=== PATIENT | female | born 1930 | race Caucasian/White ===

== ENCOUNTER 2016-08-13 08:53 | Emergency (ER) | payer OTHER ==
[~2016-08-13] VITALS: Ht 157.5 cm; Wt 64.0 kg
[~2016-08-13 08:53] MED LIST: ALPR1 PO; CRANPOW2 PO; DETR2TAB PO; FURO20TA PO; MELA10TA3 PO; OMEP20TA39 PO; SIMV20TA OR; TOPR50TA PO; VENL150T14 OR
[2016-08-13 08:57] VITALS: BP 164/76; PULSE 61; RESP 16; TEMP 98.5; O2SAT 98
[2016-08-13] MEDS ORDERED: VENL75TA PO (09:14)
[2016-08-13] MEDS ORDERED: MELA5TAB15 PO (09:14)
[2016-08-13] MEDS ORDERED: HYDR12.56 PO (09:14)
[2016-08-13] MEDS ORDERED: OXYB5TAB10 PO (09:14)
[2016-08-13] MEDS ORDERED: CHOL50006 PO (09:14)
[2016-08-13] MEDS ORDERED: XANA2TAB2 PO (09:14)
[2016-08-13] MEDS ORDERED: ASCO500C PO (09:14)
[2016-08-13] MEDS ORDERED: STOO100C PO (09:14)
[2016-08-13] MEDS ORDERED: METO25TA6 PO (09:14)
[2016-08-13] MEDS ORDERED: ASPI1TAB69 PO (09:14)
[2016-08-13] MEDS ORDERED: OMEP20TA PO (09:14)
[2016-08-13] MEDS ORDERED: ZOCO20TA PO (09:14)
[2016-08-13] MEDS ORDERED: MECLIZINE HCL 25 MG TAB PO ONE (09:15)
[2016-08-13 09:18] VITALS: BP 178/78; PULSE 71; RESP 18; O2SAT 98
--- NOTE | 2016-08-13 09:19 | PD ---
HPI Chief Complaint: Dizziness Time Seen by Provider: 09:03 Travel History International Travel<30 days: No Contact w/Intl Traveler<30days: No Traveled to known affect area: No History of Present Illness HPI 85-year-old female complains of dizziness. Patient states that she woke up this morning with dizziness and has feeling of the room spinning around her. Patient states that the dizziness got better area patient denies any dizziness now. Patient denies any headache. Patient denies any visual change. Patient denies any neck pain. Patient denies any chest pain or shortness of breath. Patient denies abdominal pain. Patient denies any focal weakness or numbness of extremity. Patient has history of spinal stenosis and normally has weakness on the lower extremity which is not new. Patient stated she drank a glass of wine last night about 3:00 the morning. Patient states that she had an energy drink this morning. Patient has history of vertigo in the past. PFSH Past Medical History Hx Anticoagulant Therapy: Yes (81 MG ASA) Arthritis: Yes Asthma: No Autoimmune Disease: No Blood Disorders: No Anxiety: Yes Depression: Yes Heart Rhythm Problems: No Cancer: No Cardiovascular Problems: Yes (LEAKING VALVE) High Cholesterol: No Chemotherapy: No Chest Pain: Yes Congestive Heart Failure: No COPD: No Cerebrovascular Accident: No Diabetes: No Diminished Hearing: No Endocrine: No Gastrointestinal Disorders: Yes GERD: No Glaucoma: No Genitourinary: No Headaches: No Hepatitis: No Hiatal Hernia: No Hypertension: Yes Neurologic: Yes Psychiatric: Yes (BIPOLAR) Reproductive: No Respiratory: Yes Immunizations Current: Yes Myocardial Infarction: No Radiation Therapy: No Seizures: No Sickle Cell Disease: No Sleep Apnea: No Ulcer: No ?: Not Menopausal: Yes Past Surgical History Abdominal Surgery: No AICD: No Arteriovenous Shunt: No Body Medical Devices: HX OF METAL IMPLANT TO SPINE Cardiac Surgery: No Ear Surgery: No Endocrine Surgery: No Eye Surgery: No Genitourinary Surgery: No Gynecologic Surgery: No Insulin Pump: No Joint Replacement: No Neurologic Surgery: No Oral Surgery: No Pacemaker: No Thoracic Surgery: No Other Surgery: No Social History Alcohol Use: No Tobacco Use: No Substance Use: No Allergies-Medications (Allergen,Severity, Reaction): Coded Allergies: Codeine (Verified Allergy, Severe, UNKNOWN, 08/13/16) Reported Meds & Prescriptions Reported Meds & Active Scripts Active Reported Stool Softener (Docusate Sodium) 100 Mg Cap 100 Mg PO DAILY Vitamin C (Ascorbic Acid) 500 Mg Cap 500 Mg PO DAILY Zocor (Simvastatin) 20 Mg Tab 20 Mg PO HS Effexor (Venlafaxine HCl) 75 Mg Tab 75 Mg PO Q12H Melatonin 5 Mg Tab 5 Mg PO HS Vitamin D (Cholecalciferol) 5,000 Unit Tab 5,000 Units PO DAILY Metoprolol Succinate ER 24 HR (Metoprolol Succinate) 25 Mg Tab 25 Mg PO DAILY Hydrochlorothiazide 12.5 Mg Tab 12.5 Mg PO DAILY Ditropan (Oxybutynin Chloride) 5 Mg Tab 10 Mg PO DAILY Omeprazole 20 Mg Tab 20 Mg PO DAILY Aspirin 81 Mg Tabdr 81 Mg PO DAILY Xanax (Alprazolam) 2 Mg Tab 2 Mg PO HS PRN Review of Systems General / Constitutional: No: Fever Eyes: No: Visual changes HENT: Positive: Lightheadedness, No: Headaches Cardiovascular: No: Chest Pain or Discomfort Respiratory: No: Shortness of Breath Gastrointestinal: No: Abdominal Pain Genitourinary: No: Dysuria Musculoskeletal: No: Pain Skin: No Rash Neurologic: No: Weakness Psychiatric: No: Depression Endocrine: No: Polydipsia Hematologic/Lymphatic: No: Easy Bruising Physical Exam Narrative GENERAL: Well-nourished, well-developed patient. SKIN: Focused skin assessment warm/dry. HEAD: Normocephalic. EYES: No scleral icterus. No injection or drainage. Pupils constricted, reactive. NECK: Supple, trachea midline. No JVD or lymphadenopathy. CARDIOVASCULAR: Regular rate and rhythm without murmurs, gallops, or rubs. RESPIRATORY: Breath sounds equal bilaterally. No accessory muscle use. GASTROINTESTINAL: Abdomen soft, non-tender, nondistended. MUSCULOSKELETAL: No cyanosis, or edema. BACK: Nontender without obvious deformity. No CVA tenderness. Neurologic exam: Patient's awake alert oriented 3. No obvious focal neurological deficit. Data Data Last Documented VS Vital Signs Date Time Temp Pulse Resp B/P Pulse Ox O2 Delivery O2 Flow Rate FiO2 08/13/16 09:18 71 18 178/78 98 Room Air 08/13/16 08:57 98.5 Orders Complete Blood Count With Diff (08/13/16 09:12) Basic Metabolic Panel (Bmp) (08/13/16 09:12) Urinalysis - C+S If Indicated (08/13/16 09:12) Iv Access Insert/Monitor (08/13/16 09:12) Ecg Monitoring (08/13/16 09:12) Oximetry (08/13/16 09:12) Meclizine (Antivert) (08/13/16 09:15) Labs Laboratory Tests Test 08/13/16 08/13/16 09:25 09:35 White Blood Count 6.2 TH/MM3 Red Blood Count 3.93 MIL/MM3 Hemoglobin 13.0 GM/DL Hematocrit 37.9 % Mean Corpuscular Volume 96.6 FL Mean Corpuscular Hemoglobin 33.1 PG Mean Corpuscular Hemoglobin 34.3 % Concent Red Cell Distribution Width 12.7 % Platelet Count 194 TH/MM3 Mean Platelet Volume 8.0 FL Neutrophils (%) (Auto) 76.7 % Lymphocytes (%) (Auto) 14.0 % Monocytes (%) (Auto) 7.8 % Eosinophils (%) (Auto) 0.9 % Basophils (%) (Auto) 0.6 % Neutrophils # (Auto) 4.7 TH/MM3 Lymphocytes # (Auto) 0.9 TH/MM3 Monocytes # (Auto) 0.5 TH/MM3 Eosinophils # (Auto) 0.1 TH/MM3 Basophils # (Auto) 0.0 TH/MM3 CBC Comment AUTO DIFF Differential Comment AUTO DIFF CONFIRMED Sodium Level 141 MEQ/L Potassium Level 4.1 MEQ/L Chloride Level 102 MEQ/L Carbon Dioxide Level 30.0 MEQ/L Anion Gap 9 MEQ/L Blood Urea Nitrogen 15 MG/DL Creatinine 0.90 MG/DL Estimat Glomerular Filtration 59 ML/MIN Rate Random Glucose 101 MG/DL Calcium Level 8.8 MG/DL Urine Collection Type CLEAN CATCH Urine Color STRAW Urine Turbidity SLIGHT Urine pH 6.0 Urine Specific [place] 1.015 Urine Protein NEG mg/dL Urine Glucose (UA) NEG mg/dL Urine Ketones NEG mg/dL Urine Occult Blood SMALL Urine Nitrite NEG Urine Bilirubin NEG Urine Leukocyte Esterase NEG Urine RBC 4-9 /hpf Urine Squamous Epithelial 0-5 /hpf Cells Urine Amorphous Sediment FEW Microscopic Urinalysis Comment CULT NOT INDICATED Urine Collection Time 0935 MDM Medical Decision Making Medical Screen Exam Complete: Yes Emergency Medical Condition: Yes Interpretation(s) 10:08 AM. CBC within normal limit. BMP within normal limit. UA is negative. Differential Diagnosis Differential diagnosis including vertigo, dehydration, electrolyte imbalance, TIA, CVA. Narrative Course 85 years old female with transient dizziness, lightheadedness this morning. Meclizine 25 mg by mouth given. Diagnosis Primary Impression: Acute onset of severe vertigo Patient Instructions: General Instructions Additional Instructions: Meclizine as needed. Follow-up with personal physician. Return if persistent problem or worse. Med/Other Pt SpecificInfo: Prescription(s) given Scripts Meclizine 25 Mg Chew25 Mg CHEW TID #21 TAB Ref 0 Prov:Jose R Winston MD 08/13/16 Disposition: 01 DISCHARGE HOME Condition: Stable Jose R Winston MD Aug 13, 2016 09:19
[2016-08-13 09:34] LABS: AUTOMATED NEUTROPHIL # 4.7 TH/MM3 (1.8-7.7); BASOPHIL % 0.6 % (0.0-2.0); EOSINOPHIL # 0.1 TH/MM3 (0-0.4); EOSINOPHIL % 0.9 % (0.0-4.0); HEMATOCRIT 37.9 % (35.0-46.0); LYMPHOCYTE # 0.9 TH/MM3 (1.0-4.8); MEAN CELL VOLUME 96.6 FL (80.0-100.0); MEAN CORPUSCULAR HEMOGLOBIN 33.1 PG (27.0-34.0); MEAN CORPUSCULAR HGB CONC 34.3 % (32.0-36.0); MONO % 7.8 % (0.0-8.0); NEUT % 76.7 % (16.0-70.0); PLATELET COUNT 194 TH/MM3 (150-450); RED BLOOD COUNT 3.93 MIL/MM3 (4.00-5.30); RED CELL DISTRIBUTION WIDTH 12.7 % (11.6-17.2); WHITE BLOOD COUNT 6.2 TH/MM3 (4.0-11.0)
[2016-08-13 09:38] LABS: HEMO FLAGS AUTO DIFF
[2016-08-13 09:47] LABS: POTASSIUM 4.1 MEQ/L (3.5-5.1)
[2016-08-13 09:55] LABS: SCAN/DIFF AUTO DIFF CONFIRMED
[2016-08-13 10:01] LABS: BLOOD, URINE SMALL (NEG); GLUCOSE,URINE NEG (NEG); KETONE, URINE NEG (NEG); NITRITE,URINE NEG (NEG)
[2016-08-13 10:02] LABS: METHOD OF COLLECTION CLEAN CATCH; URINE COLOR STRAW (YELLW/STRAW)
[2016-08-13 10:06] LABS: COMMENT (UR) CULT NOT INDICATED; CULTURE IF INDICATED CULT NOT INDICATED; SQUAMOUS EPITHELIAL CELL URINE 0-5 /hpf (0-5)
[2016-08-13] MEDS ORDERED: MECL25CH CHEW (10:11)
== END 2016-08-13 10:19 | disposition home or self-care (01) ==
LOC: PHED 08:53
DX: R42 Dizziness and giddiness (principal)
CPT/HCPCS: 80048; 81001; 85025; 99284

== ENCOUNTER 2017-02-27 13:08 | Observation (INO) | payer OTHER ==
[2017-02-27] VITALS (9 sets, daily range): BP systolic 129–153; BP diastolic 65–76; PULSE 63–102; RESP 18; TEMP 97.7–98; O2SAT 97–99
[~2017-02-27] VITALS: Ht 157.5 cm; Wt 61.5 kg
[~2017-02-27 13:08] MED LIST changes: -ALPR1 PO; +ASCO500C PO; +ASPI1TAB69 PO; +CHOL50006 PO; -CRANPOW2 PO; -DETR2TAB PO; -FURO20TA PO; +HYDR12.56 PO; +MECL25CH CHEW; -MELA10TA3 PO; +MELA5TAB15 PO; +METO25TA6 PO; +OMEP20TA PO; -OMEP20TA39 PO; +OXYB5TAB10 PO; -SIMV20TA OR; +STOO100C PO; -TOPR50TA PO; -VENL150T14 OR; +VENL75TA PO; +XANA2TAB2 PO; +ZOCO20TA PO
--- NOTE | 2017-02-27 13:47 | PD ---
Physical Exam Date Seen by Provider: Feb 27, 2017 Time Seen by Provider: 13:40 Narrative 86-year-old female presents the emergency department with ongoing intermittent left sided body pain/flank pain/muscle spasm. Patient has tried multiple medications including baclofen and tizanidine without improvement. Patient recently was treated for bladder spasm which she thinks may be part of it. She denies fever, chills, dysuria, shortness of breath, or nausea or vomiting. Pain is intermittent and spasmodic and 10 over 10 at worst. She is allergic to codeine. Data Data Last Documented VS Vital Signs Date Time Temp Pulse Resp B/P (MAP) Pulse Ox O2 Delivery O2 Flow Rate FiO2 02/27/17 13:11 97.9 63 18 129/76 (93) 98 MDM Medical Record Reviewed: Yes Supervised Visit with WILLA: Yes Narrative Course Vital signs are stable. Cardiac protocols ordered. Patient awaiting bed placement. Condition: Stable Darryl Larson Feb 27, 2017 13:47
[2017-02-27] MEDS ORDERED: SODIUM CHLORIDE 0.9% FLUSH 10 ML FLUSH IVF PRN (14:45)
--- NOTE | 2017-02-27 14:52 | PD ---
HPI Chief Complaint: Musculoskeletal Complaint Time Seen by Provider: 14:35 Travel History International Travel<30 days: No Contact w/Intl Traveler<30days: No Traveled to known affect area: No History of Present Illness HPI 86-year-old female presents with left-sided flank pain that has been present over the past week and a half or so. She states she has been trying to use medications through her primary doctor to help with her bladder spasm and has tried 3 different ones and those are not helping. She states today the pain went up into her chest so she elected to come here K she was worried about her heart. She states that it feels like a spasm. She denies other concurrent complaints at this time. Severity is progressive. She denies specific modifying factors. She states she has tried also Tylenol for the pain without change. Her primary care physician is Dr. Pierson. She notes recently flying from [place] where she visited [facility] Past Medical History Hx Anticoagulant Therapy: Yes (81 MG ASA) Arthritis: Yes Asthma: No Autoimmune Disease: No Blood Disorders: No Anxiety: Yes Depression: Yes Heart Rhythm Problems: No Cancer: No Cardiovascular Problems: Yes High Cholesterol: Yes Chemotherapy: No Chest Pain: Yes Congestive Heart Failure: No COPD: No Cerebrovascular Accident: No Diabetes: No Diminished Hearing: No Endocrine: No Gastrointestinal Disorders: Yes GERD: No Glaucoma: No Genitourinary: No Headaches: No Hepatitis: No Hiatal Hernia: No Hypertension: Yes Neurologic: Yes Psychiatric: Yes (BIPOLAR) Reproductive: No Respiratory: Yes Immunizations Current: Yes Myocardial Infarction: No Radiation Therapy: No Seizures: No Sickle Cell Disease: No Sleep Apnea: No Ulcer: No Menopausal: Yes Past Surgical History Abdominal Surgery: No AICD: No Arteriovenous Shunt: No Body Medical Devices: HX OF METAL IMPLANT TO SPINE Cardiac Surgery: No Ear Surgery: No Endocrine Surgery: No Eye Surgery: No Genitourinary Surgery: No Gynecologic Surgery: No Insulin Pump: No Joint Replacement: No Neurologic Surgery: No Oral Surgery: No Pacemaker: No Thoracic Surgery: No Other Surgery: No Social History Alcohol Use: Yes (wine) Tobacco Use: No Substance Use: No Allergies-Medications (Allergen,Severity, Reaction): Coded Allergies: codeine (Unverified Allergy, Severe, UNKNOWN, 02/27/17) Reported Meds & Prescriptions Reported Meds & Active Scripts Active Reported Aspirin 81 Mg Chew 81 Mg CHEW DAILY Stool Softener (Docusate Sodium) 100 Mg Cap 100 Mg PO DAILY Zocor (Simvastatin) 20 Mg Tab 20 Mg PO HS Effexor (Venlafaxine HCl) 75 Mg Tab 75 Mg PO Q12H Melatonin 5 Mg Tab 5 Mg PO HS Metoprolol Succinate ER 24 HR (Metoprolol Succinate) 25 Mg Tab 25 Mg PO DAILY Hydrochlorothiazide 12.5 Mg Tab 12.5 Mg PO DAILY Ditropan (Oxybutynin Chloride) 5 Mg Tab 10 Mg PO DAILY Omeprazole 20 Mg Tab 20 Mg PO DAILY Xanax (Alprazolam) 2 Mg Tab 2 Mg PO HS PRN Review of Systems Except as stated in HPI: all other systems reviewed are Neg Physical Exam Narrative GENERAL: Well-nourished, well-developed patient. SKIN: Warm and dry. HEAD: Normocephalic and atraumatic. EYES: No injection or drainage. ENT: No nasal drainage noted. NECK: Supple, trachea midline. CARDIOVASCULAR: Regular rate and rhythm RESPIRATORY: No increased effort. No accessory muscle use. GASTROINTESTINAL: Abdomen soft, non-tender, nondistended. EXTREMITIES: No edema. BACK: Nontender without obvious deformity in midline. No CVA tenderness Chest wall: Grabbing left lower chest as area of pain NEUROLOGICAL: Awake and alert. Moves all extremities and sensory grossly within normal limits. Normal speech. Data Data Last Documented VS Vital Signs Date Time Temp Pulse Resp B/P (MAP) Pulse Ox O2 Delivery O2 Flow Rate FiO2 02/27/17 15:29 101 18 153/68 (96) 97 Room Air 02/27/17 13:11 97.9 Orders Orders Electrocardiogram (02/27/17 14:43) Ckmb (Isoenzyme) Profile (02/27/17 14:43) Complete Blood Count With Diff (02/27/17 14:43) Comprehensive Metabolic Panel (02/27/17 14:43) Magnesium (Mg) (02/27/17 14:43) Prothrombin Time / Inr (Pt) (02/27/17 14:43) Act Partial Throm Time (Ptt) (02/27/17 14:43) Troponin I (02/27/17 14:43) Lipase (02/27/17 14:43) Chest, Single Ap (02/27/17 14:43) Ecg Monitoring (02/27/17 14:43) Bilateral Bp Monitoring (02/27/17 14:43) Iv Access Insert/Monitor (02/27/17 14:43) Oximetry (02/27/17 14:43) Sodium Chloride 0.9% Flush (Ns Flush) (02/27/17 14:45) Ct Pulmonary Angiogram (02/27/17 14:43) Ct Abd/Pel W Iv Contrast(Rout) (02/27/17 ) Ketorolac Inj (Toradol Inj) (02/27/17 15:00) Iohexol 350 Inj (Omnipaque 350 Inj) (02/27/17 17:00) Electrocardiogram (02/27/17 16:45) Aspirin (Aspirin) (02/27/17 18:00) Admit Order (Ed Use Only) (02/27/17 17:51) Labs Laboratory Tests Test 02/27/17 15:13 White Blood Count 7.9 TH/MM3 Red Blood Count 3.96 MIL/MM3 Hemoglobin 13.0 GM/DL Hematocrit 38.1 % Mean Corpuscular Volume 96.3 FL Mean Corpuscular Hemoglobin 32.9 PG Mean Corpuscular Hemoglobin Concent 34.2 % Red Cell Distribution Width 13.8 % Platelet Count 231 TH/MM3 Mean Platelet Volume 8.3 FL Neutrophils (%) (Auto) 67.1 % Lymphocytes (%) (Auto) 21.3 % Monocytes (%) (Auto) 10.3 % Eosinophils (%) (Auto) 0.7 % Basophils (%) (Auto) 0.6 % Neutrophils # (Auto) 5.3 TH/MM3 Lymphocytes # (Auto) 1.7 TH/MM3 Monocytes # (Auto) 0.8 TH/MM3 Eosinophils # (Auto) 0.1 TH/MM3 Basophils # (Auto) 0.0 TH/MM3 CBC Comment DIFF FINAL Differential Comment Prothrombin Time 10.2 SEC Prothromb Time International Ratio 0.9 RATIO Activated Partial Thromboplast Time 24.7 SEC Blood Urea Nitrogen 17 MG/DL Creatinine 0.96 MG/DL Random Glucose 93 MG/DL Total Protein 7.1 GM/DL Albumin 3.5 GM/DL Calcium Level 8.5 MG/DL Magnesium Level 2.1 MG/DL Alkaline Phosphatase 88 U/L Aspartate Amino Transf (AST/SGOT) 19 U/L Alanine Aminotransferase (ALT/SGPT) 22 U/L Total Bilirubin 0.3 MG/DL Sodium Level 136 MEQ/L Potassium Level 4.3 MEQ/L Chloride Level 101 MEQ/L Carbon Dioxide Level 28.8 MEQ/L Anion Gap 6 MEQ/L Estimat Glomerular Filtration Rate 55 ML/MIN Total Creatine Kinase 57 U/L Troponin I LESS THAN 0.02 NG/ML Lipase 97 U/L [facility] Medical Decision Making Medical Screen Exam Complete: Yes Emergency Medical Condition: Yes Medical Record Reviewed: Yes (past history confirmed) Interpretation(s) EKG #1 shows significant artifact with pacemaker spikes which limits interpretation but no obvious STEMI criteria EKG #2 after bladder stimulator turned off shows sinus tachycardia at [address] segment elevation or depression or consecutive T-wave inversion CBC & BMP Diagram 02/27/17 15:13 Total Protein 7.1, Albumin 3.5, Calcium Level 8.5, Magnesium Level 2.1, Alkaline Phosphatase 88, Aspartate Amino Transf (AST/SGOT) 19, Alanine Aminotransferase (ALT/SGPT) 22, Total Bilirubin 0.3 Last 24 hours Impressions Chest X-Ray 02/27/17 1443 Signed Impressions: Service Date/Time: Monday, February 27, 2017 15:21 - CONCLUSION: Cardiomegaly. Hiatal hernia. Elevation of the right hemidiaphragm. Duke Oliveira Jr., MD Last 24 hours Impressions Chest X-Ray 02/27/17 1443 Signed Impressions: Service Date/Time: Monday, February 27, 2017 15:21 - CONCLUSION: Cardiomegaly. Hiatal hernia. Elevation of the right hemidiaphragm. Duke Oliveira Jr., MD CT Angiography 02/27/17 1443 Signed Impressions: Service Date/Time: Monday, February 27, 2017 17:00 - CONCLUSION: 1. No acute infiltrate or pulmonary embolus to explain current clinical symptoms. 2. Moderate size hiatal hernia with both a sliding and paraesophageal component. 3. Dense calcification of the mitral valve annulus. Wilberto Saldivar MD Abdomen/Pelvis CT 02/27/17 0000 Signed Impressions: Service Date/Time: Monday, February 27, 2017 17:00 - CONCLUSION: 1. Sigmoid diverticulosis without radiographic evidence of diverticulitis. 2. Significant left lumbar scoliosis with associated degenerative changes. 3. Large paraesophageal hernia, larger than in 2015. Duke Maravilla MD Differential Diagnosis PE, cardiac, musculoskeletal, gastritis, kidney stone, pancreatitis Narrative Course Will check blood work, chest x-ray, CT chest and abdomen and reevaluate [employer] rep states she will come by to turn off her bladder stimulator to see if this is what is contributing to her symptoms After bladder stimulator was turned off EKG was repeated and patient notes that her symptoms for the muscle spasms have resolved. Awaiting CT ct with hiatal hernia which is noted the patient is having more left-sided spasmodic pain and is worried about her heart. She has not had a stress test in 20 years. Agrees to chest pain center observation. Aspirin given Diagnosis Primary Impression: Chest pain Qualified Codes: R07.9 - Chest pain, unspecified Admitting Information Admitting Physician Requests: Observation Irene Tucker MD Feb 27, 2017 14:51
[2017-02-27] MEDS ORDERED: KETOROLAC TROMETHAMINE 30 MG/ML (IVP) VIAL IV PUSH ONE (15:00)
[2017-02-27] MEDS ORDERED: ASPI81CH CHEW (15:25)
[2017-02-27 15:38] LABS: AUTOMATED NEUTROPHIL # 5.3 TH/MM3 (1.8-7.7); BASOPHIL % 0.6 % (0.0-2.0); EOSINOPHIL # 0.1 TH/MM3 (0-0.4); EOSINOPHIL % 0.7 % (0.0-4.0); HEMATOCRIT 38.1 % (35.0-46.0); LYMPH % 21.3 % (9.0-44.0); LYMPHOCYTE # 1.7 TH/MM3 (1.0-4.8); MEAN CELL VOLUME 96.3 FL (80.0-100.0); MEAN CORPUSCULAR HEMOGLOBIN 32.9 PG (27.0-34.0); MEAN CORPUSCULAR HGB CONC 34.2 % (32.0-36.0); MEAN PLATELET VOLUME 8.3 FL (7.0-11.0); MONO % 10.3 % (0.0-8.0); MONOCYTE # 0.8 TH/MM3 (0-0.9); NEUT % 67.1 % (16.0-70.0); PLATELET COUNT 231 TH/MM3 (150-450); RED BLOOD COUNT 3.96 MIL/MM3 (4.00-5.30); RED CELL DISTRIBUTION WIDTH 13.8 % (11.6-17.2); WHITE BLOOD COUNT 7.9 TH/MM3 (4.0-11.0)
[2017-02-27 15:45] LABS: INTERNATIONAL NORMALIZED RATIO 0.9 RATIO; PROTHROMBIN TIME - PATIENT 10.2 SEC (9.8-11.6)
--- NOTE | 2017-02-27 15:58 | RADRPT ---
EXAM DATE/TIME: 02/27/2017 15:21 [facility] COMPARISON: No previous studies available for comparison. INDICATIONS : Chest and back spasms MEDICAL HISTORY : None. SURGICAL HISTORY : None. ENCOUNTER: Initial ACUITY: 1 day PAIN SCORE: Non-responsive. LOCATION: Bilateral chest FINDINGS: A single portable frontal view the chest shows elevation of the right hemidiaphragm. Small hiatal her herb. Moderate cardiomegaly. No pulmonary vascular engorgement. Lungs are clear. No effusions. The deg enerative and scoliotic spine. CONCLUSION: Cardiomegaly. Hiatal hernia. Elevation of the right hemidiaphragm. Duke Oliveira Jr., MD on February 27, 2017 at 15:56 Board Certified Radiologist. This report was verified electronically.
[2017-02-27 16:15] LABS: ALBUMIN 3.5 GM/DL (3.4-5.0); AST (GOT) 19 U/L (15-37); BICARBONATE 28.8 MEQ/L (21.0-32.0); BLOOD UREA NITROGEN 17 MG/DL (7-18); CALCIUM 8.5 MG/DL (8.5-10.1); CHLORIDE 101 MEQ/L (98-107); GLUCOSE,RANDOM 93 MG/DL (74-106); LIPASE 97 U/L (73-393); MAGNESIUM 2.1 MG/DL (1.5-2.5); SODIUM (NA) 136 MEQ/L (136-145)
[2017-02-27 16:22] LABS: ALKALINE PHOSPHATASE 88 U/L (45-117); ALT (GPT) 22 U/L (10-53); CREATININE 0.96 MG/DL (0.50-1.00); GLOMERULAR FILTRATION RATE 55 ML/MIN (>89); TOTAL BILIRUBIN ADULT 0.3 MG/DL (0.2-1.0); TOTAL PROTEIN 7.1 GM/DL (6.4-8.2); TROPONIN I LESS THAN 0.02 NG/ML (0.02-0.05)
[2017-02-27] MEDS ORDERED: IOHEXOL 350 MG/ML 10 ML VIAL (for RAD DIAG) IVCONTRAST ONE (17:00)
--- NOTE | 2017-02-27 17:26 | RADRPT ---
EXAM DATE/TIME: 02/27/2017 17:00 [facility] COMPARISON: No previous studies available for comparison. INDICATIONS : Short of breath. IV CONTRAST: 100 cc Omnipaque 350 (iohexol) IV ; Cumulative dose for multiple exams. RADIATION DOSE: 23.25 CTDIvol (mGy) MEDICAL HISTORY : Cardiovascular disease. Hypertension. SURGICAL HISTORY : None. ENCOUNTER: Initial ACUITY: 1 day PAIN SCALE: 0/10 LOCATION: chest TECHNIQUE: Volumetric scanning of the chest was performed using a pulmonary embolism protocol MIP images were re constructed. Using automated exposure control and adjustment of the mA and/or kV according to patien t size, radiation dose was kept as low as reasonably achievable to obtain optimal diagnostic quality images. DICOM format image data is available electronically for review and comparison. Follow-up recommendations for detected pulmonary nodules are based at a minimum on nodule size and pa tient risk factors according to Fleischner Society Guidelines. FINDINGS: PULMONARY ARTERIES: No filling defects are seen in the pulmonary arteries through the segmental level. LUNGS: There is no consolidation or pneumothorax . No concerning pulmonary nodule is visualized. Benign par enchymal cyst in the anterior aspect of the left lower lobe. PLEURAE: Minimal pleural-parenchymal scarring posteriorly in the left lower hemithorax. MEDIASTINUM: There is good visualization of the great vessels of the middle mediastinum. No evidence of mediastin al or hilar adenopathy/mass. Moderate size hiatal hernia with both a sliding and paraesophageal compo nent. 1 cm hypodense nodule in the left lobe of the thyroid. Dense calcification of the mitral valve anulus MUSCULOSKELETAL: Within normal limits for patient age. MISCELLANEOUS: The visualized upper abdominal organs demonstrate no acute abnormality. Mild distention of the gallbl adder lumen. CONCLUSION: 1. No acute infiltrate or pulmonary embolus to explain current clinical symptoms. 2. Moderate size hiatal hernia with both a sliding and paraesophageal component. 3. Dense calcification of the mitral valve annulus. Wilberto Saldivar MD on February 27, 2017 at 17:19 Board Certified Radiologist. This report was verified electronically.
--- NOTE | 2017-02-27 17:31 | RADRPT ---
EXAM DATE/TIME: 02/27/2017 17:00 [facility] COMPARISON: CT ABDOMEN & PELVIS W/O CONTRAST, June 25, 2014, 10:00. INDICATIONS : Abdominal pain. IV CONTRAST: 100 cc Omnipaque 350 (iohexol) IV ; Cumulative dose for multiple exams. ORAL CONTRAST: No oral contrast ingested. RADIATION DOSE: 8.90 CTDIvol (mGy) MEDICAL HISTORY : Cardiovascular disease. Hypertension. SURGICAL HISTORY : None. ENCOUNTER: Initial ACUITY: 1 day PAIN SCALE: 4/10 LOCATION: Bilateral abdomen TECHNIQUE: Volumetric scanning of the abdomen and pelvis was performed. Using automated exposure control and ad justment of the mA and/or kV according to patient size, radiation dose was kept as low as reasonably achievable to obtain optimal diagnostic quality images. DICOM format image data is available electro nically for review and comparison. FINDINGS: LOWER LUNGS: The visualized lower lungs are clear. Moderate size hiatus hernia measuring 7.7 cm with configuratio n suggesting associated paraesophageal hernia. LIVER: Homogeneous density without lesion. There is no dilation of the biliary tree. No calcified gallston es. SPLEEN: Normal size without lesion. PANCREAS: Within normal limits. KIDNEYS: No evidence of hydronephrosis on this side. There is a lobular configuration to the cortex of both k idneys suggesting possible persistent lobation. There multiple cortical and parenchymal cysts in the left kidney measuring up to 12 mm. ADRENAL GLANDS: Within normal limits. VASCULAR: Prominent wall calcification in the aorta. There is no aortic aneurysm. BOWEL/MESENTERY: No dilated loops of small or large bowel. The appendix is identified in the right lower quadrant and the lumen contains gas. There are numerous air-containing diverticula in the sigmoid colon without radiographic evidence of diverticulitis. No evidence of free fluid. ABDOMINAL WALL: Within normal limits. RETROPERITONEUM: There is no lymphadenopathy. BLADDER: No wall thickening or mass. REPRODUCTIVE: Within normal limits. INGUINAL: There is no lymphadenopathy or hernia. MUSCULOSKELETAL: Significant left lumbar scoliosis with associated endplate sclerosis and lower lumbar hypertrophic de generative changes. CONCLUSION: 1. Sigmoid diverticulosis without radiographic evidence of diverticulitis. 2. Significant left lumbar scoliosis with associated degenerative changes. 3. Large paraesophageal hernia, larger than in 2015. Duke Maravilla MD on February 27, 2017 at 17:24 Board Certified Radiologist. This report was verified electronically.
[2017-02-27] MEDS ORDERED: ASPIRIN 325 MG TAB PO ONE (18:00)
[2017-02-27] MEDS ORDERED: SODIUM CHLORIDE 0.9% FLUSH 10 ML FLUSH IV FLUSH PRN (18:15)
[2017-02-27] MEDS: SODIUM CHLORIDE 0.9% FLUSH 10 ML FLUSH IV FLUSH SCH (21:00)
[2017-02-27 21:33] LABS: TROPONIN I LESS THAN 0.02 NG/ML (0.02-0.05)
[2017-02-28 00:37] LABS: TROPONIN I LESS THAN 0.02 NG/ML (0.02-0.05)
[2017-02-28 03:17] VITALS: BP 175/77; PULSE 86; RESP 17; TEMP 98.5; O2SAT 96
[2017-02-28 03:46] VITALS: PULSE 93
--- NOTE | 2017-02-28 06:38 | EKG ---
Date Performed: 02/27/2017 Time Performed: 15:30:50 PTAGE: 86 years EKG: Probable normal Sinus rhythm artifact-no further interpretation ABNORMAL ECG PREVIOUS TRACING : 02/25/2012 16.44 DOCTOR: Chantal Jacobsen Interpretating Date/Time 02/28/2017 06:37:52
--- NOTE | 2017-02-28 06:41 | EKG ---
Date Performed: 02/27/2017 Time Performed: 21:20:55 PTAGE: 86 years EKG: Sinus rhythm POSSIBLE LEFT ATRIAL ENLARGEMENT POSSIBLE ANTERIOR MYOCARDIAL INFARCTION INFERIOR MYOCARDIAL INFARCT ION ABNORMAL ECG DOCTOR: Chantal Jacobsen Interpretating Date/Time 02/28/2017 06:40:34
[2017-02-28 07:31] VITALS: O2SAT 98
[2017-02-28 07:38] VITALS: BP 182/79; PULSE 93; RESP 20; TEMP 97.6; O2SAT 100
[2017-02-28 08:53] VITALS: PULSE 100
[2017-02-28] MEDS: SODIUM CHLORIDE 0.9% FLUSH 10 ML FLUSH IV FLUSH SCH (09:02)
--- NOTE | 2017-02-28 09:18 | HHI.HP ---
[facility] Primary Care Physician Dr. Pierson Chief Complaint Left sided back pain History of Present Illness 86-year-old female with history of hyperlipidemia, bipolar disorder, and anxiety presents to emergency room for further evaluation of left sided back pain. Onset 2 weeks ago progressively worsening. Location left mid and lower back. Characterized as sharp and cramping pain. No radiation of pain, however endorses intermittent chest tightness. Duration of chest tightness minutes. No associated symptoms of nausea, vomiting, dyspnea, or diaphoresis. No known precipitating or relieving factors. Denies similar pain in the past. Review of Systems General: No fatigue,weakness, fever, chills, or recent illness change. Other than as stated above has been her general state of health. HEENT: No [place] CV: Intermittent chest tightness accompanied with back pain. No current chest tightness or pressure. RESP: No SOB, cough, or sputum production. GI: No nausea, vomiting, or bowel changes. : No dysuria EXT: No lower leg edema, no paraesthesias MS: As stated above. Back pain made worse with movement, unable to get comfortable in any position. No change in ROM, injury, or trauma. NEURO: No difficulty with balance, LOC, or motor/sensory deficits PSYCH: History of anxiety, depression, and bipolar disorder. 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 SKIN: No rashes, no concerning lesions Past Family Social History Allergies: Coded Allergies: codeine (Unverified Allergy, Severe, UNKNOWN, 02/27/17) Past Medical History Anxiety, depression, hyperlipidemia, arthritis, bipolar, GERD, hypertension Past Surgical History Lumbar surgery with implanted metal Reported Medications Reported Meds & Active Scripts Active Reported Aspirin 81 Mg Chew 81 Mg CHEW DAILY Stool Softener (Docusate Sodium) 100 Mg Cap 100 Mg PO DAILY Zocor (Simvastatin) 20 Mg Tab 20 Mg PO HS Effexor (Venlafaxine HCl) 75 Mg Tab 75 Mg PO Q12H Melatonin 5 Mg Tab 5 Mg PO HS Metoprolol Succinate ER 24 HR (Metoprolol Succinate) 25 Mg Tab 25 Mg PO DAILY Hydrochlorothiazide 12.5 Mg Tab 12.5 Mg PO DAILY Ditropan (Oxybutynin Chloride) 5 Mg Tab 10 Mg PO DAILY Omeprazole 20 Mg Tab 20 Mg PO DAILY Xanax (Alprazolam) 2 Mg Tab 2 Mg PO HS PRN Active Ordered Medications Current Medications Medications (Trade) Dose Ordered Sig/Nancy Route Start Time Stop Time Status Last Admin (NS Flush) 2 ml UNSCH PRN IVF 02/27/17 14:45 (NS Flush) 2 ml UNSCH PRN IV FLUSH 02/27/17 18:15 (NS Flush) 2 ml BID IV FLUSH 02/27/17 21:00 02/28/17 09:02 Family History Noncontributory for early onset cardiovascular disease. Social History Known hyperlipidemia and hypertension. No known coronary artery disease or diabetes. Lifelong nonsmoker. Denies any alcohol or illegal drug use. Endorses an active lifestyle. Past cardiac testing None Physical Exam Vital Signs Vital Signs Date Time Temp Pulse Resp B/P (MAP) Pulse Ox O2 Delivery O2 Flow Rate FiO2 02/28/17 08:53 100 02/28/17 07:38 97.6 93 20 182/79 (113) 100 02/28/17 03:46 93 02/28/17 03:17 98.5 86 17 175/77 (109) 96 02/27/17 23:54 97.7 86 18 145/73 (97) 97 02/27/17 20:03 97.9 96 18 148/65 (92) 97 02/27/17 20:00 98 02/27/17 18:09 97 02/27/17 15:29 101 18 153/68 (96) 97 Room Air 02/27/17 15:20 101 18 02/27/17 15:20 102 153/68 (96) 147/72 (97) 02/27/17 15:18 18 99 Room Air 02/27/17 13:11 97.9 63 18 129/76 (93) 98 Physical Exam GENERAL: Alert WN, WD, anxious, elderly female who appears in moderate physical distress HEAD: NC, AT EYES: Sclera clear, conjunctiva without injection, pupils equal and round ENT: Mucous membranes pink and moist NECK: Supple, no masses, trachea midline CV: RRR, without murmur, rub, gallop, no JVD, S1-S2 no S3-S4. RESP: Clear lungs throughout bilateral, no crackles, wheeze, rhonchi, symmetrical chest rise, nonlabored, able to speak in full sentences ABD: Soft, NT, ND, no masses, positive bowel tones BACK: Symmetrical, scoliosis noted, no CVA tenderness EXT: Pulses +24, no dependent edema MS: Normal tone 4 extremities, nontender with palpation, no obvious deformities , full range of motion NEURO: CN II through CN XII grossly intact, motor strength 5/5 PSYCH: A+O 3, pleasant affect, appropriate speech, appropriate mood and affect , insight and judgment SKIN: Normal turgor, normal texture, no lesions, no rashes Laboratory Laboratory Tests Test 02/27/17 15:13 02/27/17 20:15 02/27/17 23:35 White Blood Count 7.9 Red Blood Count 3.96 Hemoglobin 13.0 Hematocrit 38.1 Mean Corpuscular Volume 96.3 Mean Corpuscular Hemoglobin 32.9 Mean Corpuscular Hemoglobin Concent 34.2 Red Cell Distribution Width 13.8 Platelet Count 231 Mean Platelet Volume 8.3 Neutrophils (%) (Auto) 67.1 Lymphocytes (%) (Auto) 21.3 Monocytes (%) (Auto) 10.3 Eosinophils (%) (Auto) 0.7 Basophils (%) (Auto) 0.6 Neutrophils # (Auto) 5.3 Lymphocytes # (Auto) 1.7 Monocytes # (Auto) 0.8 Eosinophils # (Auto) 0.1 Basophils # (Auto) 0.0 CBC Comment DIFF FINAL Differential Comment Prothrombin Time 10.2 Prothromb Time International Ratio 0.9 Activated Partial Thromboplast Time 24.7 Blood Urea Nitrogen 17 Creatinine 0.96 Random Glucose 93 Total Protein 7.1 Albumin 3.5 Calcium Level 8.5 Magnesium Level 2.1 Alkaline Phosphatase 88 Aspartate Amino Transf (AST/SGOT) 19 Alanine Aminotransferase (ALT/SGPT) 22 Total Bilirubin 0.3 Sodium Level 136 Potassium Level 4.3 Chloride Level 101 Carbon Dioxide Level 28.8 Anion Gap 6 Estimat Glomerular Filtration Rate 55 Total Creatine Kinase 57 54 50 Troponin I LESS THAN 0.02 LESS THAN 0.02 LESS THAN 0.02 Lipase 97 Result Diagram: 02/27/17 1513 02/27/17 1513 Imaging Last Impressions Myocardial Perfusion Scan Nuc Med 02/28/17 0000 Signed Impressions: Service Date/Time: Tuesday, February 28, 2017 11:13 - CONCLUSION: No reversible defects observed to suggest acute ischemia. RISK CATEGORY: Low Duke Oliveira Jr., MD Chest X-Ray 02/27/17 1443 Signed Impressions: Service Date/Time: Monday, February 27, 2017 15:21 - CONCLUSION: Cardiomegaly. Hiatal hernia. Elevation of the right hemidiaphragm. Duke Oliveira Jr., MD CT Angiography 02/27/17 1443 Signed Impressions: Service Date/Time: Monday, February 27, 2017 17:00 - CONCLUSION: 1. No acute infiltrate or pulmonary embolus to explain current clinical symptoms. 2. Moderate size hiatal hernia with both a sliding and paraesophageal component. 3. Dense calcification of the mitral valve annulus. Wilberto Saldivar MD Abdomen/Pelvis CT 02/27/17 0000 Signed Impressions: Service Date/Time: Monday, February 27, 2017 17:00 - CONCLUSION: 1. Sigmoid diverticulosis without radiographic evidence of diverticulitis. 2. Significant left lumbar scoliosis with associated degenerative changes. 3. Large paraesophageal hernia, larger than in 2015. Duke Maravilla MD Course EKG Normal sinus tachycardia, no ST or T-segment changes Caprini VTE Risk Assessment Caprini VTE Risk Assessment: Mod/High Risk (score >= 2) Caprini Risk Assessment Model Point Value = 1 Point Value = 2 Point Value = 3 Point Value = 5 Age 41-60 Minor surgery BMI > 25 kg/m2 Swollen legs Varicose veins or History of unexplained or recurrent spontaneous Oral contraceptives or hormone replacement Sepsis (< 1 month) Serious lung disease, including pneumonia (< 1 month) Abnormal pulmonary function Acute myocardial infarction Congestive heart failure (< 1 month) History of inflammatory bowel disease Medical patient at bed rest Age 61-74 Arthroscopic surgery Major open surgery (> 45 min) Laparoscopic surgery (> 45 min) Malignancy Confined to bed (> 72 hours) Immobilizing plaster cast Central venous access Age >= 75 History of VTE Family history of VTE Factor V Leiden Prothrombin [id number] Lupus anticoagulant Anticardiolipin antibodies Elevated serum homocysteine Heparin-induced thrombocytopenia Other congenital or acquired thrombophilia Stroke (< 1 month) Elective arthroplasty Hip, pelvis, or leg fracture Acute spinal cord injury (< 1 month) Prophylaxis Regimen Total Risk Factor Score Risk Level Prophylaxis Regimen 0-1 Low Early ambulation 2 Moderate Order ONE of the following: *Sequential Compression Device (SCD) *Heparin 5000 units SQ BID 3-4 Higher Order ONE of the following medications: *Heparin 5000 units SQ TID *Enoxaparin/Lovenox 40 mg SQ daily (WT < 150 kg, CrCl > 30 mL/min) *Enoxaparin/Lovenox 30 mg SQ daily (WT < 150 kg, CrCl > 10-29 mL/min) *Enoxaparin/Lovenox 30 mg SQ BID (WT < 150 kg, CrCl > 30 mL/min) AND/OR *Sequential Compression Device (SCD) 5 or more Highest Order ONE of the following medications: *Heparin 5000 units SQ TID (Preferred with Epidurals) *Enoxaparin/Lovenox 40 mg SQ daily (WT < 150 kg, CrCl > 30 mL/min) *Enoxaparin/Lovenox 30 mg SQ daily (WT < 150 kg, CrCl > 10-29 mL/min) *Enoxaparin/Lovenox 30 mg SQ BID (WT < 150 kg, CrCl > 30 mL/min) AND *Sequential Compression Device (SCD) Assessment and Plan Assessment and Plan #1 Atypical chest pain-admitted to chest pain center. Ruled out with 3 sets of EKGs, cardiac enzymes, and monitored overnight. Seen and evaluated by Dr. Rommel Tan. Chest tightness atypical, pain medication provided prior to planned chemical stress test. If chemical stress test unremarkable, plan to discharge later this afternoon. Patient agreeable to plan of care. #2 Lumbar radiculopathy-Soma 350 mg by mouth 1, left lumbar scoliosis with degenerative changes found on abd/pelvis CT Scan #3 Anxiety-continue Xanax #4 Hyperlipidemia-continue simvastatin #5 Hypertension-continue metoprolol, hydrochlorothiazide #6 Depression-continue Effexor #7 GERD-continue omeprazole 1445-Chemical stress test unremarkable with no signs of stress-induced ischemia. Continue with plan to discharge home later this afternoon. Patient agreeable to plan of care, stating back pain nearly resolved with Soma. Wishes to go home and will follow up with her PCP. Toya Mclain Feb 28, 2017 09:18
[2017-02-28] MEDS ORDERED: CARISOPRODOL 350 MG TAB PO ONE (10:30)
[2017-02-28] MEDS ORDERED: REGADENOSON INJ 0.4 MG/5 ML SYR ONE (11:57)
[2017-02-28] MEDS ORDERED: NITROGLYCERIN 0.4 MG SL 25 TABS/BTL SL PRN (13:30)
[2017-02-28] MEDS ORDERED: ONDANSETRON HCL 4 MG/2 ML VIAL IV PUSH PRN (13:30)
[2017-02-28] MEDS ORDERED: ACETAMINOPHEN 500 MG CPLT PO PRN (13:30)
--- NOTE | 2017-02-28 13:37 | RADRPT ---
EXAM DATE/TIME: 02/28/2017 11:13 [facility] COMPARISON: No previous studies available for comparison. INDICATIONS : Left sided chest pain. Angina. DOSE: 25.4 mCi Tc99m Myoview at stress. 8.5 mCi Tc99m Myoview at rest. 0.4 mg Lexiscan STRESS SYMPTOMS: Dyspnea. EJECTION FRACTION: > 70% MEDICAL HISTORY : Hypertension. SURGICAL HISTORY : Back surgery. ENCOUNTER: Initial ACUITY: 1 day PAIN SCALE: 4/10 LOCATION: Left chest TECHNIQUE: The patient underwent pharmacologic stress with infusion of prescribed dose. Continuous ECG tracing was monitored during stress. Gated SPECT imaging was performed after stress and conventional SPECT i maging was performed at rest. The examination was performed on a SPECT/CT scanner, both attenuation and non-corrected datasets were reviewed. FINDINGS: DISTRIBUTION: The maximum perfused segment at stress is in the inferior wall. PERFUSION STUDY: The pattern of perfusion at stress is within normal limits. GATED STUDY: There is intact wall motion and thickening without hypokinetic or dyskinetic segments. CONCLUSION: No reversible defects observed to suggest acute ischemia. RISK CATEGORY: Low Duke Oliveira Jr., MD on February 28, 2017 at 13:33 Board Certified Radiologist. This report was verified electronically.
[2017-02-28 14:11] VITALS: BP 212/92; PULSE 102; RESP 20; TEMP 98.1; O2SAT 97
[2017-02-28] MEDS ORDERED: VENLAFAXINE HCL 75 MG TAB PO SCH (14:30)
[2017-02-28] MEDS ORDERED: HYDROCHLOROTHIAZIDE 12.5 MG CAP PO SCH (14:30)
[2017-02-28] MEDS ORDERED: OXYBUTYNIN CHLORIDE 5 MG TAB PO SCH (14:30)
[2017-02-28] MEDS ORDERED: METOPROLOL SUCCINATE 25 MG EXTENDED RELEASE TAB PO SCH (14:30)
[2017-02-28] MEDS ORDERED: PANTOPRAZOLE SOD 20 MG DELAYED RELEASE TAB PO SCH (14:30)
[2017-02-28] MEDS ORDERED: SOMA250T PO (14:51)
--- NOTE | 2017-02-28 14:51 | HHI.DCPOC ---
Discharge Care Plan Diagnosis: (1) Atypical chest pain (2) Cramps, muscle, general Goals to Promote Your Health * To prevent worsening of your condition and complications * To maintain your health at the optimal level Directions to Meet Your Goals Take your medications as prescribed Follow your dietary instruction Follow activity as directed Keep your appointments as scheduled Take your immunizations and boosters as scheduled If your symptoms worsen call your PCP, if no PCP go to Urgent Care Center or Emergency Room Smoking is Dangerous to Your Health. Avoid second hand smoke Call the 24-hour hour crisis hotline for domestic abuse at Toya Mclain Feb 28, 2017 14:51
--- NOTE | 2017-02-28 14:51 | HHI.DCPOC ---
Discharge Care Plan Diagnosis: (1) Atypical chest pain (2) Cramps, muscle, general Goals to Promote Your Health * To prevent worsening of your condition and complications * To maintain your health at the optimal level Directions to Meet Your Goals Take your medications as prescribed Follow your dietary instruction Follow activity as directed Keep your appointments as scheduled Take your immunizations and boosters as scheduled If your symptoms worsen call your PCP, if no PCP go to Urgent Care Center or Emergency Room Smoking is Dangerous to Your Health. Avoid second hand smoke Call the 24-hour hour crisis hotline for domestic abuse at Toya Mclain Feb 28, 2017 14:51
--- NOTE | 2017-02-28 14:51 | HHI.DCPOC ---
Discharge Care Plan Diagnosis: (1) Atypical chest pain (2) Cramps, muscle, general Goals to Promote Your Health * To prevent worsening of your condition and complications * To maintain your health at the optimal level Directions to Meet Your Goals Take your medications as prescribed Follow your dietary instruction Follow activity as directed Keep your appointments as scheduled Take your immunizations and boosters as scheduled If your symptoms worsen call your PCP, if no PCP go to Urgent Care Center or Emergency Room Smoking is Dangerous to Your Health. Avoid second hand smoke Call the 24-hour hour crisis hotline for domestic abuse at Toya Mclain Feb 28, 2017 14:51
--- NOTE | 2017-02-28 16:13 | EKG ---
Date Performed: 02/27/2017 Time Performed: 23:54:21 PTAGE: 86 years EKG: Sinus rhythm POSSIBLE LEFT ATRIAL ENLARGEMENT ABNORMAL ECG PREVIOUS TRACING : 02/27/2017 21.20 Since previous tracing, no significant change noted DOCTOR: Rommel Tan Interpretating Date/Time 02/28/2017 16:12:29
--- NOTE | 2017-02-28 16:23 | TR ---
Date Performed: 02/28/2017 Time Performed: 12:01:51 DOCTOR: Rommel Tan DRUG LIST: CLINICAL HISTORY: REASON FOR TEST: REASON FOR ENDING: OBSERVATION: CONCLUSION: Lexiscan stress test was performed under standard four minute protocol. Radionuclid e was injected one minute prior to ending the test. No electrocardiographic abormalities were present to suggest ischemia. Nuclear imaging and interpretation are pending. COMMENTS:
[2017-02-28] MEDS ORDERED: PRAVASTATIN SOD 40 MG TAB PO SCH (21:00)
--- NOTE | 2017-03-01 15:41 | EKG ---
Date Performed: 02/27/2017 Time Performed: 16:45:50 PTAGE: 86 years EKG: SINUS TACHYCARDIA LEFT ATRIAL ENLARGEMENT (-0.15mV P WAVE IN V1/V2) POSSIBLE ANTERIOR MYOCA RIAL INFARCTION (30ms Q WAVE IN V3/V4, OR R <0.2 mV IN VA), OF INDETERMINATE AGE. INFERIOR MYOCARDIAL INFARCTION (40+ ms Q WAVE AND/OR ST/T ABNORMALITY IN II/aVF), PROBABLY OLD COMPARED TO THE PRIOR TRA CING THERE IS PROBABLE NO GROSS SERIAL CHANGE, BUT THE PREVIOUS TRACING HAD TOO MUCH ARTIFACT FOR RE LIABLE COMPARISON . ABNORMAL ECG PREVIOUS TRACING : 02/27/2017 15.30 DOCTOR: Kami Myrick Interpretating Date/Time 03/01/2017 15:52:37
== END 2017-02-28 15:53 | disposition home or self-care (01) ==
LOC: NEPC 13:08 → NEDA 17:53 → NEPFCDU 20:02
PROVIDERS: ADMIT Internal Medicine Interventional Cardiology; ATTEND Internal Medicine Interventional Cardiology
DX: R07.89 Other chest pain (principal); M62.838 Other muscle spasm; I10 Essential (primary) hypertension; E78.00 Pure hypercholesterolemia, unspecified; R94.31 Abnormal electrocardiogram [ECG] [EKG]
CPT/HCPCS: 71010; 71275; 74177; 78452; 80053; 82550; 83690; 83735; 84484; 85025; 85610; 85730; 93005; 93017; 96374; 99285; A9502; G0378; J1885; J2785; Q9967

== ENCOUNTER 2017-07-17 21:27 | Observation (INO) | payer OTHER ==
[~2017-07-17 21:27] MED LIST changes: -ASCO500C PO; +ASPI-516 CHEW; -ASPI1TAB69 PO; -CHOL50006 PO; +DOCU1CAP66 PO; -MECL25CH CHEW; +MELA5 PO; -MELA5TAB15 PO; +METO1TAB42 PO; -METO25TA6 PO; -OMEP20TA PO; +OMEP20TA93 PO; -OXYB5TAB10 PO; +OXYB5TAB8 PO; +SOMA250T PO; -STOO100C PO
[2017-07-17] MEDS ORDERED: SODIUM CHLORIDE 0.9% FLUSH 10 ML FLUSH IV FLUSH PRN ×2 (22:00→23:45)
[2017-07-17 22:02] VITALS: BP 190/90; PULSE 108; RESP 20; TEMP 98.6; O2SAT 98
--- NOTE | 2017-07-17 22:03 | PD ---
HPI Chief Complaint: Altered mental status Time Seen by Provider: 21:44 Travel History International Travel<30 days: No Contact w/Intl Traveler<30days: No Traveled to known affect area: No History of Present Illness HPI 86-year-old female brought here from her [facility] for evaluation. When trying to obtain why the patient is here from the patient is not exactly clear. I contacted the patient's daughter Merna Colon ([phone]) who tells me that the patient has not been acting like her usual self for at least 5 days. She yelled at one of the residents at her assisted living facility which is not like her. She was diagnosed with a UTI yesterday by her primary care physician and started on Bactrim. Today the patient insisted that she go to the emergency department for evaluation. The patient tells me she is here because she is not eating bread and is causing her to have cramps. She denies chest pain or dyspnea. No abdominal pain. Patient's daughter also tells me that the patient may be abusing her Xanax. PFSH Past Medical History Hx Anticoagulant Therapy: Yes (81 MG ASA) Arthritis: Yes Asthma: No Autoimmune Disease: No Blood Disorders: No Anxiety: Yes Depression: Yes Heart Rhythm Problems: No Cancer: No Cardiac Catheterization: No Cardiovascular Problems: Yes High Cholesterol: No Chemotherapy: No Chest Pain: Yes Congestive Heart Failure: No COPD: No Cerebrovascular Accident: No Diabetes: No Diminished Hearing: No Endocrine: No Gastrointestinal Disorders: Yes GERD: No Glaucoma: No Genitourinary: Yes ("medtronic bladder stimulator") Headaches: No Hepatitis: No Hiatal Hernia: No Hypertension: Yes Neurologic: Yes Psychiatric: Yes (BIPOLAR) Reproductive: No Respiratory: Yes Immunizations Current: Yes Myocardial Infarction: No Radiation Therapy: No Seizures: No Sickle Cell Disease: No Sleep Apnea: No Ulcer: No Menopausal: Yes Past Surgical History Abdominal Surgery: No AICD: No Arteriovenous Shunt: No Body Medical Devices: HX OF METAL IMPLANT TO SPINE Cardiac Surgery: No Coronary Artery Bypass Graft: No Ear Surgery: No Endocrine Surgery: No Eye Surgery: No Genitourinary Surgery: No Gynecologic Surgery: No Insulin Pump: No Joint Replacement: No Neurologic Surgery: No Oral Surgery: No Pacemaker: No Thoracic Surgery: No Other Surgery: No Social History Alcohol Use: Yes (wine daily) Tobacco Use: No Substance Use: No Allergies-Medications (Allergen,Severity, Reaction): Coded Allergies: codeine (Unverified Allergy, Severe, UNKNOWN, 02/27/17) Reported Meds & Prescriptions Reported Meds & Active Scripts Active Soma (Carisoprodol) 250 Mg Tab 250 Mg PO Q8HR PRN 7 Days Reported Aspirin 81 Mg Chew 81 Mg CHEW DAILY Stool Softener (Docusate Sodium) 100 Mg Cap 100 Mg PO DAILY Zocor (Simvastatin) 20 Mg Tab 20 Mg PO HS Effexor (Venlafaxine HCl) 75 Mg Tab 75 Mg PO Q12H Melatonin 5 Mg Tab 5 Mg PO HS Metoprolol Succinate ER 24 HR (Metoprolol Succinate) 25 Mg Tab 25 Mg PO DAILY Hydrochlorothiazide 12.5 Mg Tab 12.5 Mg PO DAILY Ditropan (Oxybutynin Chloride) 5 Mg Tab 10 Mg PO DAILY Omeprazole 20 Mg Tab 20 Mg PO DAILY Xanax (Alprazolam) 2 Mg Tab 2 Mg PO HS PRN Review of Systems Except as stated in HPI: all other systems reviewed are Neg Physical Exam Narrative GENERAL: Well-developed, well-nourished, elderly-appearing female, awake, alert , no apparent distress. SKIN: Focused skin assessment warm/dry. HEAD: Atraumatic. Normocephalic. EYES: Pupils equal and round. No scleral icterus. No injection or drainage. ENT: Mucous membranes pink and moist. NECK: Trachea midline. No JVD. CARDIOVASCULAR: Regular rate and rhythm. No murmur appreciated. RESPIRATORY: No accessory muscle use. Clear to auscultation. Breath sounds equal bilaterally. GASTROINTESTINAL: Abdomen soft, non-tender, nondistended. MUSCULOSKELETAL: No obvious deformities. No clubbing. No cyanosis. No edema. NEUROLOGICAL: Awake and alert. No obvious cranial nerve deficits. Motor grossly within normal limits. Normal speech. Data Data Last Documented VS Vital Signs Date Time Temp Pulse Resp B/P (MAP) Pulse Ox O2 Delivery O2 Flow Rate FiO2 07/17/17 23:06 100 20 186/85 (118) 97 Room Air 07/17/17 22:02 98.6 Orders Orders Complete Blood Count With Diff (07/17/17 21:57) Comprehensive Metabolic Panel (07/17/17 21:57) Urinalysis - C+S If Indicated (07/17/17 21:57) Blood Glucose (07/17/17 21:57) Ecg Monitoring (07/17/17 21:57) Iv Access Insert/Monitor (07/17/17 21:57) Oximetry (07/17/17 21:57) Sodium Chloride 0.9% Flush (Ns Flush) (07/17/17 22:00) Ct Brain W/O Iv Contrast(Rout) (07/17/17 ) Urine Culture (07/17/17 23:38) Labs Laboratory Tests Test 07/17/17 20:20 White Blood Count 6.3 TH/MM3 Red Blood Count 3.86 MIL/MM3 Hemoglobin 12.9 GM/DL Hematocrit 37.2 % Mean Corpuscular Volume 96.4 FL Mean Corpuscular Hemoglobin 33.3 PG Mean Corpuscular Hemoglobin Concent 34.5 % Red Cell Distribution Width 13.5 % Platelet Count 181 TH/MM3 Mean Platelet Volume 8.1 FL Neutrophils (%) (Auto) 76.1 % Lymphocytes (%) (Auto) 13.0 % Monocytes (%) (Auto) 9.9 % Eosinophils (%) (Auto) 0.7 % Basophils (%) (Auto) 0.3 % Neutrophils # (Auto) 4.8 TH/MM3 Lymphocytes # (Auto) 0.8 TH/MM3 Monocytes # (Auto) 0.6 TH/MM3 Eosinophils # (Auto) 0.0 TH/MM3 Basophils # (Auto) 0.0 TH/MM3 CBC Comment DIFF FINAL Differential Comment Urine Color LIGHT-YELLOW Urine Turbidity CLEAR Urine pH 6.5 Urine Specific [place] 1.004 Urine Protein NEG mg/dL Urine Glucose (UA) NEG mg/dL Urine Ketones NEG mg/dL Urine Occult Blood NEG Urine Nitrite NEG Urine Bilirubin NEG Urine Urobilinogen LESS THAN 2.0 MG/DL Urine Leukocyte Esterase MOD Urine RBC LESS THAN 1 /hpf Urine WBC 5 /hpf Urine Squamous Epithelial Cells 1 /hpf Microscopic Urinalysis Comment CATH-CULT NOT IND Blood Urea Nitrogen 14 MG/DL Creatinine 1.17 MG/DL Random Glucose 114 MG/DL Total Protein 7.4 GM/DL Albumin 3.9 GM/DL Calcium Level 9.2 MG/DL Alkaline Phosphatase 82 U/L Aspartate Amino Transf (AST/SGOT) 23 U/L Alanine Aminotransferase (ALT/SGPT) 21 U/L Total Bilirubin 0.5 MG/DL Sodium Level 134 MEQ/L Potassium Level 3.7 MEQ/L Chloride Level 98 MEQ/L Carbon Dioxide Level 25.6 MEQ/L Anion Gap 10 MEQ/L Estimat Glomerular Filtration Rate 44 ML/MIN MDM Medical Decision Making Medical Screen Exam Complete: Yes Emergency Medical Condition: Yes Differential Diagnosis UTI, intracranial abnormality, metabolic abnormality Narrative Course Vital signs reviewed. CBC is unremarkable. CMP is essentially unremarkable. UA shows moderate leukocyte esterase, 5 WBCs. The patient is on Bactrim for treatment of the UTI and this was started yesterday. CT head: No acute intracranial abnormality. Atrophy. Chronic small vessel ischemic change. When discussing the patient with her daughter earlier today, the patient's daughter stated that the patient made a remark that she thought that she needed to be admitted to the hospital, and if she was not admitted she was going to kill herself. The patient's daughter does not actually believe that the patient is suicidal, however this is not usual behavior for the patient. Patient has signs of delirium. She tells me things like she is having cramps in her legs because she is not eating enough bread. This is potentially related to the UTI that she was diagnosed with by a primary care physician yesterday and started on Bactrim. Today the UTI appears to be partially treated based on her urinalysis. Urine culture will be sent. The patient lives in an [facility] and is not safe to be discharged back to her facility as she lives in the independent section of the [facility]. Because of this she will be admitted for observation. Case discussed with hospitalist Dr. Brock who will admit the patient to her service. Diagnosis Primary Impression: Delirium Additional Impressions: UTI (urinary tract infection) Qualified Codes: N39.0 - Urinary tract infection, site not specified Alteration in self-care ability Admitting Information Admitting Physician Requests: Observation Devante Mcgill MD Jul 17, 2017 22:03
[2017-07-17 22:46] LABS: BILIRUBIN, URINE NEG (NEG); BLOOD, URINE NEG (NEG); GLUCOSE,URINE NEG (NEG); KETONE, URINE NEG (NEG); NITRITE,URINE NEG (NEG); PH, URINE 6.5 (5.0-8.5); SQUAMOUS EPITHELIAL CELL URINE 1 /hpf (0-5); URINE COLOR LIGHT-YELLOW (YELLW/STRAW); URINE LEUKOCYTE ESTERASE MOD (NEG)
[2017-07-17 22:59] LABS: AUTOMATED NEUTROPHIL # 4.8 TH/MM3 (1.8-7.7); BASOPHIL % 0.3 % (0.0-2.0); EOSINOPHIL % 0.7 % (0.0-4.0); HEMATOCRIT 37.2 % (35.0-46.0); HEMOGLOBIN 12.9 GM/DL (11.6-15.3); LYMPHOCYTE # 0.8 TH/MM3 (1.0-4.8); MEAN CELL VOLUME 96.4 FL (80.0-100.0); MEAN CORPUSCULAR HEMOGLOBIN 33.3 PG (27.0-34.0); MEAN CORPUSCULAR HGB CONC 34.5 % (32.0-36.0); MEAN PLATELET VOLUME 8.1 FL (7.0-11.0); MONO % 9.9 % (0.0-8.0); MONOCYTE # 0.6 TH/MM3 (0-0.9); NEUT % 76.1 % (16.0-70.0); PLATELET COUNT 181 TH/MM3 (150-450); RED BLOOD COUNT 3.86 MIL/MM3 (4.00-5.30); RED CELL DISTRIBUTION WIDTH 13.5 % (11.6-17.2); WHITE BLOOD COUNT 6.3 TH/MM3 (4.0-11.0)
--- NOTE | 2017-07-17 22:59 | RADRPT ---
EXAM DATE/TIME: 07/17/2017 22:38 [facility] COMPARISON: No previous studies available for comparison. INDICATIONS : Altered mental status. RADIATION DOSE: 56.35 CTDIvol (mGy) MEDICAL HISTORY : Hypertension. SURGICAL HISTORY : None. ENCOUNTER: Initial ACUITY: 1 day PAIN SCALE: 0/10 LOCATION: cranial TECHNIQUE: Multiple contiguous axial images were obtained of the head. Using automated exposure control and adj ustment of the mA and/or kV according to patient size, radiation dose was kept as low as reasonably a chievable to obtain optimal diagnostic quality images. DICOM format image data is available electro nically for review and comparison. FINDINGS: CEREBRUM: Atrophy. Periventricular low attenuation change involving both cerebral hemispheres. The ventricles a re normal for age. No evidence of midline shift, mass lesion, hemorrhage or acute infarction. No ex tra-axial fluid collections are seen. POSTERIOR FOSSA: The cerebellum and brainstem are intact. The 4th ventricle is midline. The cerebellopontine angle i s unremarkable. EXTRACRANIAL: The visualized portion of the orbits is intact. SKULL: The calvaria is intact. No evidence of skull fracture. CONCLUSION: 1. No acute intracranial abnormality. 2. Atrophy. 3. Chronic small vessel ischemic change. Duke Oliveira Jr., MD on July 17, 2017 at 22:55 Board Certified Radiologist. This report was verified electronically.
[2017-07-17 23:00] LABS: ALBUMIN 3.9 GM/DL (3.4-5.0); ALT (GPT) 21 U/L (10-53); AST (GOT) 23 U/L (15-37); BICARBONATE 25.6 MEQ/L (21.0-32.0); BLOOD UREA NITROGEN 14 MG/DL (7-18); CALCIUM 9.2 MG/DL (8.5-10.1); CHLORIDE 98 MEQ/L (98-107); CREATININE 1.17 MG/DL (0.50-1.00); GLOMERULAR FILTRATION RATE 44 ML/MIN (>89); GLUCOSE,RANDOM 114 MG/DL (74-106); SODIUM (NA) 134 MEQ/L (136-145)
[2017-07-17 23:03] LABS: ALKALINE PHOSPHATASE 82 U/L (45-117); TOTAL BILIRUBIN ADULT 0.5 MG/DL (0.2-1.0); TOTAL PROTEIN 7.4 GM/DL (6.4-8.2)
[2017-07-17 23:06] VITALS: BP 186/85; PULSE 100; RESP 20; O2SAT 97
[2017-07-17] MEDS ORDERED: NALOXONE HCL 0.4 MG/ML AMP IV PUSH PRN (23:45)
[2017-07-18] VITALS (7 sets, daily range): BP systolic 147–187; BP diastolic 52–82; PULSE 70–100; RESP 15–20; TEMP 97.8–98.3; O2SAT 95–97
[2017-07-18] MEDS ORDERED: cefTRIAXone INJ 1,000 MG in SODIUM CHLORIDE 0.9% INJ 100 ML IV ONE ×2
[2017-07-18] MEDS ORDERED: TOLT1CAP PO (00:15)
[2017-07-18] MEDS ORDERED: BUSP1TAB PO (00:15)
[2017-07-18] MEDS ORDERED: ALOE25CA PO (00:15)
[2017-07-18] MEDS ORDERED: CRANBERRY FRUIT (00:15)
[2017-07-18] MEDS ORDERED: magnesium PO (00:15)
[2017-07-18] MEDS ORDERED: COQ-50CA2 (00:15)
[2017-07-18] MEDS ORDERED: bactrim (00:15)
[2017-07-18] MEDS ORDERED: Fiber (00:15)
[2017-07-18] MEDS ORDERED: RHODIOLA ROSEA PO (00:15)
[2017-07-18] MEDS ORDERED: VALE500C2 PO (00:15)
[2017-07-18] MEDS ORDERED: POME1CAP PO (00:15)
[2017-07-18] MEDS ORDERED: zinc PO (00:15)
[2017-07-18] MEDS ORDERED: OCUVCAP2 PO (00:15)
[2017-07-18] MEDS ORDERED: VITA1000 PO (00:15)
[2017-07-18] MEDS ORDERED: calcium (00:15)
[2017-07-18] MEDS ORDERED: ALPRAZolam 1 MG TAB PO PRN (02:15)
--- NOTE | 2017-07-18 02:19 | HHI.HP ---
[facility] Primary Care Physician Unknown Admission Diagnosis Delirium, UTI, inability to care for self Diagnoses: Chief Complaint: confustion and dysuria Travel History International Travel<30 Days: No Contact w/Intl Traveler <30 Da: No Traveled to Known Affected Are: No History of Present Illness 86-year-old female with history of pulmonary hypertension, chronic kidney disease, hypertension, bipolar, CAD, hyperlipidemia, diabetes and anxiety presented to the ED with complaints of dysuria and delirium. Patient is partially oriented but forgetful at times and is currently living [facility] but feels she needs to be in memory care. She states she does feel like she is becoming more confused over time and cannot live alone. She denies any chest pain, shortness of breath, fever or chills. On examination patient is able to tell me her history but does state she does not remember everything. She complains of burning with urination but states she feels a little better since getting antibiotics. Past Family Social History Past Medical History History taken from [facility] report: Pulmonary hypertension Chronic kidney disease Bipolar HLD GERD CKD CAD Past Surgical History Rotator cuff repair Bladder stimulator Reported Medications Reported Meds & Active Scripts Active Reported [bactrim] [zinc] 50 Mg PO WEEKLY Valerian Root (Valerian (Valeriana Officinali) 500 Mg Cap Mg PO HS Ocuvite Adult 50+ (Multiple Vitamins W/ Minerals) 1 Cap 1 Cap PO DAILY [Rhodiola rosea] 500 Mg PO DAILY Pomegranate (Pomegranate Fruit Extract) 250 Mg Capsule 500 Mg PO DAILY [magnesium] 400 Mg PO DAILY [Fiber] 2 Cap DAILY [Cranberry fruit] 3 Cap BID [calcium] 600 Mg DAILY Aloe Vera Concentrate (Aloe Vera) 5,000 Mg Cap 25 Mg PO Coq-10 (Coenzyme Q10 (Ubidecarenone)) 50 Mg Cap 100 Mg Tolterodine ER (Tolterodine Tartrate) 4 Mg Cap 4 Mg PO DAILY Vitamin D-1000 (Cholecalciferol) 1,000 Unit Tab 5,000 Units PO DAILY Buspirone (Buspirone HCl) 7.5 Mg Tab 7.5 Mg PO BID Aspirin 81 Mg Chew 81 Mg CHEW MON, SUN, SUN Stool Softener (Docusate Sodium) 100 Mg Cap 100 Mg PO DAILY Zocor (Simvastatin) 20 Mg Tab 20 Mg PO HS Effexor (Venlafaxine HCl) 75 Mg Tab 75 Mg PO Q12H Melatonin 5 Mg Tab 3 Mg PO HS Metoprolol Succinate ER 24 HR (Metoprolol Succinate) 25 Mg Tab 50 Mg PO DAILY Hydrochlorothiazide 12.5 Mg Tab 12.5 Mg PO DAILY Xanax (Alprazolam) 2 Mg Tab 2 Mg PO HS PRN Allergies: Coded Allergies: codeine (Unverified Allergy, Severe, UNKNOWN, 02/27/17) Active Ordered Medications Current Medications Medications (Trade) Dose Ordered Sig/Nancy Route Start Time Stop Time Status Last Admin (NS Flush) 2 ml UNSCH PRN IV FLUSH 07/17/17 23:45 (NS Flush) 2 ml BID IV FLUSH 07/18/17 09:00 (Narcan Inj) 0.4 mg UNSCH PRN IV PUSH 07/17/17 23:45 Ceftriaxone Sodium 1000 mg/ Sodium Chloride 100 ml @ 200 mls/hr Q24H IV 07/19/17 01:00 Family History Patient does not remember family history Social History Patient denies any tobacco, alcohol or illicit drug use Physical Exam Vital Signs Vital Signs Date Time Temp Pulse Resp B/P (MAP) Pulse Ox O2 Delivery O2 Flow Rate FiO2 07/18/17 00:17 96 20 172/77 (108) 97 Room Air 07/17/17 23:06 100 20 186/85 (118) 97 Room Air 07/17/17 22:02 98.6 108 20 190/90 (123) 98 Physical Exam GENERAL: This is a well-nourished, well-developed patient, in no apparent distress. SKIN: No rashes, ecchymoses or lesions. Cool and dry. HEAD: Atraumatic. Normocephalic. EYES: Pupils equal round and reactive. Extraocular motions intact. ENT: Nose without bleeding, purulent drainage or septal hematoma. Airway patent. NECK: Trachea midline. No JVD or lymphadenopathy. CARDIOVASCULAR: Regular rate and rhythm without murmurs, gallops, or rubs. RESPIRATORY: Clear to auscultation. Breath sounds equal bilaterally. No wheezes , rales, or rhonchi. GASTROINTESTINAL: Abdomen soft, non-tender, nondistended. No hepato-splenomegaly , or palpable masses. No guarding. MUSCULOSKELETAL: Extremities without clubbing, cyanosis, or edema. No calf tenderness. NEUROLOGICAL: Awake and alert, shy oriented. Motor and sensory grossly within normal limits. Normal speech. Laboratory Laboratory Tests Test 07/17/17 20:20 White Blood Count 6.3 Red Blood Count 3.86 Hemoglobin 12.9 Hematocrit 37.2 Mean Corpuscular Volume 96.4 Mean Corpuscular Hemoglobin 33.3 Mean Corpuscular Hemoglobin Concent 34.5 Red Cell Distribution Width 13.5 Platelet Count 181 Mean Platelet Volume 8.1 Neutrophils (%) (Auto) 76.1 Lymphocytes (%) (Auto) 13.0 Monocytes (%) (Auto) 9.9 Eosinophils (%) (Auto) 0.7 Basophils (%) (Auto) 0.3 Neutrophils # (Auto) 4.8 Lymphocytes # (Auto) 0.8 Monocytes # (Auto) 0.6 Eosinophils # (Auto) 0.0 Basophils # (Auto) 0.0 CBC Comment DIFF FINAL Differential Comment Urine Color LIGHT-YELLOW Urine Turbidity CLEAR Urine pH 6.5 Urine Specific [place] 1.004 Urine Protein NEG Urine Glucose (UA) NEG Urine Ketones NEG Urine Occult Blood NEG Urine Nitrite NEG Urine Bilirubin NEG Urine Urobilinogen LESS THAN 2.0 Urine Leukocyte Esterase MOD Urine RBC LESS THAN 1 Urine WBC 5 Urine Squamous Epithelial Cells 1 Microscopic Urinalysis Comment CATH-CULT NOT IND Blood Urea Nitrogen 14 Creatinine 1.17 Random Glucose 114 Total Protein 7.4 Albumin 3.9 Calcium Level 9.2 Alkaline Phosphatase 82 Aspartate Amino Transf (AST/SGOT) 23 Alanine Aminotransferase (ALT/SGPT) 21 Total Bilirubin 0.5 Sodium Level 134 Potassium Level 3.7 Chloride Level 98 Carbon Dioxide Level 25.6 Anion Gap 10 Estimat Glomerular Filtration Rate 44 Date/Time Source Procedure Growth Status 07/17/17 20:20 Urine Clean Catch Urine Culture Pending Received Result Diagram: 07/17/17201907/17/172019 Imaging Last Impressions Head CT 07/17/17 0000 Signed Impressions: Service Date/Time: Monday, July 17, 2017 22:38 - CONCLUSION: 1. No acute intracranial abnormality. 2. Atrophy. 3. Chronic small vessel ischemic change. MD Vivi Rivera Jr. VTE Risk Assessment Caprini VTE Risk Assessment: No/Low Risk (score <= 1) Caprini Risk Assessment Model Point Value = 1 Point Value = 2 Point Value = 3 Point Value = 5 Age 41-60 Minor surgery BMI > 25 kg/m2 Swollen legs Varicose veins or History of unexplained or recurrent spontaneous Oral contraceptives or hormone replacement Sepsis (< 1 month) Serious lung disease, including pneumonia (< 1 month) Abnormal pulmonary function Acute myocardial infarction Congestive heart failure (< 1 month) History of inflammatory bowel disease Medical patient at bed rest Age 61-74 Arthroscopic surgery Major open surgery (> 45 min) Laparoscopic surgery (> 45 min) Malignancy Confined to bed (> 72 hours) Immobilizing plaster cast Central venous access Age >= 75 History of VTE Family history of VTE Factor V Leiden Prothrombin [id number] Lupus anticoagulant Anticardiolipin antibodies Elevated serum homocysteine Heparin-induced thrombocytopenia Other congenital or acquired thrombophilia Stroke (< 1 month) Elective arthroplasty Hip, pelvis, or leg fracture Acute spinal cord injury (< 1 month) Prophylaxis Regimen Total Risk Factor Score Risk Level Prophylaxis Regimen 0-1 Low Early ambulation 2 Moderate Order ONE of the following: *Sequential Compression Device (SCD) *Heparin 5000 units SQ BID 3-4 Higher Order ONE of the following medications: *Heparin 5000 units SQ TID *Enoxaparin/Lovenox 40 mg SQ daily (WT < 150 kg, CrCl > 30 mL/min) *Enoxaparin/Lovenox 30 mg SQ daily (WT < 150 kg, CrCl > 10-29 mL/min) *Enoxaparin/Lovenox 30 mg SQ BID (WT < 150 kg, CrCl > 30 mL/min) AND/OR *Sequential Compression Device (SCD) 5 or more Highest Order ONE of the following medications: *Heparin 5000 units SQ TID (Preferred with Epidurals) *Enoxaparin/Lovenox 40 mg SQ daily (WT < 150 kg, CrCl > 30 mL/min) *Enoxaparin/Lovenox 30 mg SQ daily (WT < 150 kg, CrCl > 10-29 mL/min) *Enoxaparin/Lovenox 30 mg SQ BID (WT < 150 kg, CrCl > 30 mL/min) AND *Sequential Compression Device (SCD) Assessment and Plan Problem List: (1) Delirium ICD Code: R41.0 - Disorientation, unspecified Status: Acute (2) Alteration in self-care ability ICD Code: R53.81 - Other malaise Status: Acute Assessment and Plan 86-year-old female with history of pulmonary hypertension, chronic kidney disease, hypertension, bipolar, CAD, hyperlipidemia, diabetes and anxiety presented to the ED with complaints of dysuria and delirium. UTI Abnormal UA with moderate leukocyte esterase -IV antibiotics: Rocephin IV Delirium exacerbated by UTI/ Inability to care for self -Patient will need to be placed from [facility] to [facility]F HTN, chronic -Resume home medications: metoprolol and hydrochlorothiazide -monitor vitals DVT prophylaxes: SCDs Discussed Condition With Patient and RN Kia Rosado Jul 18, 2017 02:19
[2017-07-18] MEDS ORDERED: PILL SPLITTER OTHER PRN (02:30)
[2017-07-18 06:23] LABS: AUTOMATED NEUTROPHIL # 4.1 TH/MM3 (1.8-7.7); BASOPHIL % 0.3 % (0.0-2.0); EOSINOPHIL % 0.7 % (0.0-4.0); HEMATOCRIT 39.2 % (35.0-46.0); HEMOGLOBIN 13.6 GM/DL (11.6-15.3); LYMPH % 10.9 % (9.0-44.0); LYMPHOCYTE # 0.6 TH/MM3 (1.0-4.8); MEAN CORPUSCULAR HEMOGLOBIN 33.9 PG (27.0-34.0); MEAN CORPUSCULAR HGB CONC 34.6 % (32.0-36.0); MEAN PLATELET VOLUME 7.7 FL (7.0-11.0); MONO % 10.5 % (0.0-8.0); MONOCYTE # 0.6 TH/MM3 (0-0.9); NEUT % 77.6 % (16.0-70.0); PLATELET COUNT 193 TH/MM3 (150-450); RED CELL DISTRIBUTION WIDTH 13.4 % (11.6-17.2); WHITE BLOOD COUNT 5.3 TH/MM3 (4.0-11.0)
[2017-07-18 06:39] LABS: BICARBONATE 25.6 MEQ/L (21.0-32.0); CALCIUM 9.7 MG/DL (8.5-10.1); CREATININE 1.07 MG/DL (0.50-1.00)
[2017-07-18] MEDS: DOCUSATE SODIUM 100 MG CAP PO SCH (09:00)
[2017-07-18] MEDS: SODIUM CHLORIDE 0.9% FLUSH 10 ML FLUSH IV FLUSH SCH ×2 (09:39→20:20)
[2017-07-18] MEDS: busPIRone HCL 5 MG TAB PO SCH ×2 (09:39→20:19)
[2017-07-18] MEDS: METOPROLOL SUCCINATE 25 MG EXTENDED RELEASE TAB PO SCH (09:40)
[2017-07-18] MEDS: TOLTERODINE TARTRATE 4 MG CAP LA PO SCH (09:40)
[2017-07-18] MEDS: VENLAFAXINE HCL XR 75 MG CAP PO SCH ×2 (09:40→20:19)
[2017-07-18] MEDS: HYDROCHLOROTHIAZIDE 12.5 MG CAP PO SCH (09:40)
--- NOTE | 2017-07-18 11:17 | HHI.PR ---
Subjective Remarks Follow-up visit dysuria, HTN, confusion/altered mental status. Patient seen and examined today. One-to-one staff at the bedside. Patient is awake and alert oriented to place, year, month, self. Noted occasional forgetfulness and confusion. Reports urinary incontinence. Denies SOB/ dyspnea. Denies chest pain, palpitations, headaches, dizziness. Denies fevers, chills, n/v/d. Objective Vitals Vital Signs Date Time Temp Pulse Resp B/P (MAP) Pulse Ox O2 Delivery O2 Flow Rate FiO2 07/18/17 08:00 100 16 168/80 (109) 97 Room Air 07/18/17 04:29 92 20 187/82 (117) 96 Room Air 07/18/17 00:17 96 20 172/77 (108) 97 Room Air 07/17/17 23:06 100 20 186/85 (118) 97 Room Air 07/17/17 22:02 98.6 108 20 190/90 (123) 98 I/O 07/17/17 07/17/17 07/17/17 07/18/17 07/18/17 07/18/17 06:59 14:59 22:59 06:59 14:59 22:59 Output Total 250 ml 350 ml Balance -250 ml -350 ml Output Urine Total 250 ml 350 ml # Voids 1 3 1 Result Diagram: 07/18/17 0543 07/18/17 0543 Imaging Last Impressions Head CT 07/17/17 0000 Signed Impressions: Service Date/Time: Monday, July 17, 2017 22:38 - CONCLUSION: 1. No acute intracranial abnormality. 2. Atrophy. 3. Chronic small vessel ischemic change. Duke Oliveira Jr., MD Objective Remarks GENERAL: This is a well-nourished, well-developed patient, in no apparent distress. SKIN: Warm and dry. HEENT: Normocephalic. Pupils equal round and reactive. Nose without bleeding. Airway patent. NECK: Trachea midline. CARDIOVASCULAR: Regular rate and rhythm without murmurs, gallops, or rubs. RESPIRATORY: Clear to auscultation. Breath sounds equal bilaterally. No wheezes , rales, or rhonchi. GASTROINTESTINAL: Abdomen soft, non-tender, nondistended. Bowel Sounds normoactive x4. MUSCULOSKELETAL: Extremities without clubbing, cyanosis, or edema. NEUROLOGICAL: Awake and alert. Oriented to time, place, person. Periods of confusion. Moves all extremities. Normal speech. A/P Problem List: (1) Delirium ICD Code: R41.0 - Disorientation, unspecified Status: Acute (2) Alteration in self-care ability ICD Code: R53.81 - Other malaise Status: Acute Assessment and Plan 86-year-old female with history of pulmonary hypertension, chronic kidney disease, hypertension, bipolar, CAD, hyperlipidemia, diabetes and anxiety presented to the ED with complaints of dysuria and delirium. UTI Abnormal UA with moderate leukocyte esterase -IV antibiotics: Rocephin IV -Pending urinary cultures Delirium exacerbated by UTI/ Inability to care for self -Patient will need to be placed [facility] -From [facility] HTN, chronic -Resume home medications: metoprolol and hydrochlorothiazide -monitor vitals DVT prophylaxes: Alex Underwood Jul 18, 2017 11:17
[2017-07-18] MEDS ORDERED: PRAVASTATIN SOD 40 MG TAB PO SCH (21:00)
[2017-07-19] MEDS ORDERED: cefTRIAXone INJ 1,000 MG in SODIUM CHLORIDE 0.9% INJ 100 ML IV SCH (01:00)
[2017-07-19 04:05] VITALS: BP 126/62; PULSE 85; RESP 20; TEMP 98.2; O2SAT 96
[2017-07-19 07:27] VITALS: BP 166/72; PULSE 76; RESP 20; TEMP 98; O2SAT 94
--- NOTE | 2017-07-19 08:38 | HHI.DS ---
Discharge Summary Admission Date Jul 17, 2017 at 23:58 Discharge Date: Jul 19, 2017 Admitting Diagnosis Delirium, UTI, inability to care for self (1) Delirium ICD Code: R41.0 - Disorientation, unspecified Status: Acute (2) Alteration in self-care ability ICD Code: R53.81 - Other malaise Status: Acute Procedures none Brief History - From Admission 86-year-old female with history of pulmonary hypertension, chronic kidney disease, hypertension, bipolar, CAD, hyperlipidemia, diabetes and anxiety presented to the ED with complaints of dysuria and delirium. Patient is partially oriented but forgetful at times and is currently living [facility] but feels she needs to be in memory care. She states she does feel like she is becoming more confused over time and cannot live alone. She denies any chest pain, shortness of breath, fever or chills. On examination patient is able to tell me her history but does state she does not remember everything. She complains of burning with urination but states she feels a little better since getting antibiotics. CBC/BMP: 07/18/17 0543 07/18/17 0543 Significant Findings Laboratory Tests Test 07/17/17 20:20 07/18/17 05:43 Red Blood Count 3.86 MIL/MM3 (4.00-5.30) Neutrophils (%) (Auto) 76.1 % (16.0-70.0) 77.6 % (16.0-70.0) Monocytes (%) (Auto) 9.9 % (0.0-8.0) 10.5 % (0.0-8.0) Lymphocytes # (Auto) 0.8 TH/MM3 (1.0-4.8) 0.6 TH/MM3 (1.0-4.8) Urine Leukocyte Esterase MOD (NEG) Creatinine 1.17 MG/DL (0.50-1.00) 1.07 MG/DL (0.50-1.00) Random Glucose 114 MG/DL (74-106) Sodium Level 134 MEQ/L (136-145) Estimat Glomerular Filtration Rate 44 ML/MIN (>89) 48 ML/MIN (>89) Imaging Last Impressions Head CT 07/17/17 0000 Signed Impressions: Service Date/Time: Monday, July 17, 2017 22:38 - CONCLUSION: 1. No acute intracranial abnormality. 2. Atrophy. 3. Chronic small vessel ischemic change. Duke Oliveira Jr., MD PE at Discharge GENERAL: This is a well-nourished, well-developed patient, in no apparent distress. SKIN: Warm and dry. HEENT: Normocephalic. Pupils equal round and reactive. Nose without bleeding. Airway patent. NECK: Trachea midline. CARDIOVASCULAR: Regular rate and rhythm without murmurs, gallops, or rubs. RESPIRATORY: Clear to auscultation. Breath sounds equal bilaterally. No wheezes , rales, or rhonchi. GASTROINTESTINAL: Abdomen soft, non-tender, nondistended. Bowel Sounds normoactive x4. MUSCULOSKELETAL: Extremities without clubbing, cyanosis, or edema. NEUROLOGICAL: Awake and alert. Oriented to time, place, person. Periods of confusion. Moves all extremities. Normal speech. Hospital Course 86-year-old female with history of pulmonary hypertension, chronic kidney disease, hypertension, bipolar, CAD, hyperlipidemia, diabetes and anxiety presented to the ED with complaints of dysuria and delirium. UTI Abnormal UA with moderate leukocyte esterase Received IV antibiotics: Rocephin IV Urinary cultures are neg, DC abx Delirium exacerbated by UTI/ Inability to care for self Patient will need to be placed to [facility] with more care From [facility] HTN, chronic Resume home medications: metoprolol and hydrochlorothiazide monitor vitals DVT prophylaxes: SCDs Patient improved. DC to [facility] in stable condition with home health to follow up with PCP and consultants. Pt Condition on Discharge: Stable Discharge Disposition: Discharge to SNF Discharge Time: > 30 minutes Discharge Instructions DIET: Follow Instructions for: Heart Healthy Diet Activities you can perform: Regular-No Restrictions Follow up Referrals: PCP Follow-up - 2-3 Days Continued Medications: Aloe Vera (Aloe Vera Concentrate) 5,000 Mg Cap 25 MG PO, CAP Alprazolam (Xanax) 2 Mg Tab 2 MG PO HS PRN for ANXIETY, #10 TAB 0 Refills (This prescription has been renewed) Aspirin (Aspirin) 81 Mg Chew 81 MG CHEW Mon, Wed, Fri, #1 TAB 0 Refills Buspirone (Buspirone) 7.5 Mg Tab 7.5 MG PO BID for Anxiety, TAB 0 Refills Cholecalciferol (Vitamin D-1000) 1,000 Unit Tab 5000 UNITS PO DAILY for Nutritional Supplement, #1 BOTTLE 0 Refills Coenzyme Q10 (Ubidecarenone) (Coq-10) 50 Mg Cap 100 MG Docusate Sodium (Stool Softener) 100 Mg Cap 100 MG PO DAILY Hydrochlorothiazide (Hydrochlorothiazide) 12.5 Mg Tab 12.5 MG PO DAILY, #30 TAB 0 Refills Melatonin (Melatonin) 5 Mg Tab 3 MG PO HS for Provide Good Sleep, TAB 0 Refills Metoprolol Succinate ER 24 HR (Metoprolol Succinate ER 24 HR) 25 Mg Tab 50 MG PO DAILY, #30 TAB 0 Refills Multiple Vitamins W/ Minerals (Ocuvite Adult 50+) 1 Cap 1 CAP PO DAILY for Nutritional Supplement, CAP 0 Refills Pomegranate Fruit Extract (Pomegranate) 250 Mg Capsule 500 MG PO DAILY Simvastatin (Zocor) 20 Mg Tab 20 MG PO HS for Cholesterol Management, #30 TAB 0 Refills Tolterodine ER (Tolterodine ER) 4 Mg Cap 4 MG PO DAILY for Urinary Symptom Managemen, #30 CAP 0 Refills Venlafaxine (Effexor) 75 Mg Tab 75 MG PO Q12H, #60 TAB 0 Refills Sharon Shah MD Jul 19, 2017 08:37
[2017-07-19] MEDS ORDERED: XANA2TAB2 PO (10:17)
--- NOTE | 2017-07-19 10:37 | HHI.FF ---
Face to Face Verification Diagnosis: (1) Acute onset of severe vertigo (2) Cramps, muscle, general (3) Delirium (4) UTI (urinary tract infection) (5) Alteration in self-care ability Physical Therapy Order: Evaluate and Treat Home Health Nursing Order: Medical education Signs/symptoms of disease process Medication education-adverse effect Nursing assessment with vital signs I have seen patient Mansi Veronica on 07/19/17. My clinical findings support the need for the requested home health care services because: Ltd mobility - disease progression Patient has SOB I certify that my clinical findings support that this patient is homebound because: Post-op weakness Unsteady gait/balance Sharon Shah MD Jul 19, 2017 10:37
[2017-07-19] MEDS: DOCUSATE SODIUM 100 MG CAP PO SCH (10:51)
[2017-07-19] MEDS: busPIRone HCL 5 MG TAB PO SCH (10:52)
[2017-07-19] MEDS: METOPROLOL SUCCINATE 25 MG EXTENDED RELEASE TAB PO SCH (10:52)
[2017-07-19] MEDS: TOLTERODINE TARTRATE 4 MG CAP LA PO SCH (10:52)
[2017-07-19] MEDS: VENLAFAXINE HCL XR 75 MG CAP PO SCH (10:52)
[2017-07-19] MEDS: HYDROCHLOROTHIAZIDE 12.5 MG CAP PO SCH (10:53)
[2017-07-19] MEDS: SODIUM CHLORIDE 0.9% FLUSH 10 ML FLUSH IV FLUSH SCH (10:53)
[2017-07-19 11:47] VITALS: BP 118/52; PULSE 65; RESP 18; TEMP 97.9; O2SAT 96
--- NOTE | 2017-07-19 16:25 | HHI.PR ---
Subjective Remarks Patient in nad. Feels better and says she is at her baseline. Alert and oriented , pleasant. No n/v/d/c. Denies chest pain or sob. No fever or chills. Objective Vitals Vital Signs Date Time Temp Pulse Resp B/P (MAP) Pulse Ox O2 Delivery O2 Flow Rate FiO2 07/19/17 11:47 97.9 65 18 118/52 (74) 96 07/19/17 07:27 98.0 76 20 166/72 (103) 94 07/19/17 04:05 98.2 85 20 126/62 (83) 96 07/18/17 23:34 98.3 90 16 147/52 (83) 97 07/18/17 19:30 97.8 70 20 175/63 (100) 95 I/O 07/18/17 07/18/17 07/18/17 07/19/17 07/19/17 07/19/17 07:00 15:00 23:00 07:00 15:00 23:00 Output Total 350 ml Balance -350 ml Output Urine Total 350 ml # Voids 3 1 Result Diagram: 07/18/17 0543 07/18/17 0543 Imaging Last Impressions Head CT 07/17/17 0000 Signed Impressions: Service Date/Time: Monday, July 17, 2017 22:38 - CONCLUSION: 1. No acute intracranial abnormality. 2. Atrophy. 3. Chronic small vessel ischemic change. Duke Oliveira Jr., MD Objective Remarks GENERAL: This is a well-nourished, well-developed patient, in no apparent distress. SKIN: Warm and dry. HEENT: Normocephalic. Pupils equal round and reactive. Nose without bleeding. Airway patent. NECK: Trachea midline. CARDIOVASCULAR: Regular rate and rhythm without murmurs, gallops, or rubs. RESPIRATORY: Clear to auscultation. Breath sounds equal bilaterally. No wheezes , rales, or rhonchi. GASTROINTESTINAL: Abdomen soft, non-tender, nondistended. Bowel Sounds normoactive x4. MUSCULOSKELETAL: Extremities without clubbing, cyanosis, or edema. NEUROLOGICAL: Awake and alert. Oriented to time, place, person. Moves all extremities. Normal speech. A/P Problem List: (1) Delirium ICD Code: R41.0 - Disorientation, unspecified Status: Acute (2) Alteration in self-care ability ICD Code: R53.81 - Other malaise Status: Acute Assessment and Plan 86-year-old female with history of pulmonary hypertension, chronic kidney disease, hypertension, bipolar, CAD, hyperlipidemia, diabetes and anxiety presented to the ED with complaints of dysuria and delirium. UTI Abnormal UA with moderate leukocyte esterase -IV antibiotics: Rocephin IV -Pending urinary cultures Delirium exacerbated by UTI/ Inability to care for self -Patient will need to be placed from [facility] to SNF -From [facility] HTN, chronic -Resume home medications: metoprolol and hydrochlorothiazide -monitor vitals DVT prophylaxes: SCDs Improved wants to go back to [facility] with home health Discussed with the case management, following for DC plan Sharon Shah MD Jul 19, 2017 16:25
[2017-07-21] MEDS ORDERED: FIBE625T10 PO (10:49)
[2017-07-21] MEDS ORDERED: CALC600T5 PO (10:49)
[2017-07-21] MEDS ORDERED: MAGN400T24 PO (10:49)
[2017-07-21] MEDS ORDERED: CHEL50TA PO (10:49)
[2017-07-21] MEDS ORDERED: CRAN405C PO (10:49)
== END 2017-07-19 18:27 | disposition home or self-care (01) ==
LOC: NEPD 21:27 → NEDA 23:58 → NEDH 07-18 06:43 → NEPHCDU 07-18 14:26
PROVIDERS: ADMIT Hospitalist; ATTEND Hospitalist
DX: R41.0 Disorientation, unspecified (principal); N39.0 Urinary tract infection, site not specified; I25.10 Atherosclerotic heart disease of native coronary artery without angina pectoris; I12.9 Hypertensive chronic kidney disease with stage 1 through stage 4 chronic kidney disease, or unspecified chronic kidney disease; E11.22 Type 2 diabetes mellitus with diabetic chronic kidney disease; N18.9 Chronic kidney disease, unspecified; E78.5 Hyperlipidemia, unspecified; I27.20 Pulmonary hypertension, unspecified; K21.9 Gastro-esophageal reflux disease without esophagitis; R32 Unspecified urinary incontinence; F41.9 Anxiety disorder, unspecified
CPT/HCPCS: 70450; 80048; 80053; 81001; 85025; 87086; 96365; 96366; 97116; 97162; 99285; G0378; G8987; G8988; J0696

== ENCOUNTER 2017-08-27 12:58 | Emergency (ER) | payer OTHER ==
[~2017-08-27] VITALS: Ht 154.9 cm; Wt 65.0 kg
[~2017-08-27 12:58] MED LIST changes: +ALOE25CA PO; +BUSP1TAB PO; +CALC600T5 PO; +CHEL50TA PO; +COQ-50CA2; +CRAN405C PO; +FIBE625T10 PO; +MAGN400T24 PO; +OCUVCAP2 PO; -OMEP20TA93 PO; -OXYB5TAB8 PO; +POME1CAP PO; +RHODIOLA ROSEA PO; -SOMA250T PO; +TOLT1CAP PO; +VALE500C2 PO; +VITA1000 PO
[2017-08-27 13:18] VITALS: BP 184/83; PULSE 82; RESP 17; TEMP 97.4; O2SAT 99
[2017-08-27] MEDS ORDERED: SODIUM CHLORIDE 0.9% FLUSH 10 ML FLUSH IV FLUSH PRN (13:30)
[2017-08-27 13:58] LABS: AUTOMATED NEUTROPHIL # 8.1 TH/MM3 (1.8-7.7); BASOPHIL % 0.5 % (0.0-2.0); EOSINOPHIL % 0.2 % (0.0-4.0); HEMATOCRIT 36.2 % (35.0-46.0); HEMOGLOBIN 12.7 GM/DL (11.6-15.3); LYMPH % 9.3 % (9.0-44.0); LYMPHOCYTE # 0.9 TH/MM3 (1.0-4.8); MEAN CELL VOLUME 95.7 FL (80.0-100.0); MEAN CORPUSCULAR HEMOGLOBIN 33.7 PG (27.0-34.0); MEAN CORPUSCULAR HGB CONC 35.2 % (32.0-36.0); MEAN PLATELET VOLUME 8.1 FL (7.0-11.0); MONO % 6.9 % (0.0-8.0); MONOCYTE # 0.7 TH/MM3 (0-0.9); NEUT % 83.1 % (16.0-70.0); PLATELET COUNT 309 TH/MM3 (150-450); RED BLOOD COUNT 3.78 MIL/MM3 (4.00-5.30); RED CELL DISTRIBUTION WIDTH 12.9 % (11.6-17.2); WHITE BLOOD COUNT 9.7 TH/MM3 (4.0-11.0)
[2017-08-27 14:02] LABS: BILIRUBIN, URINE NEG (NEG); BLOOD, URINE NEG (NEG); GLUCOSE,URINE NEG (NEG); HYALINE CAST, URINE 3 /lpf (RARE); KETONE, URINE NEG (NEG); NITRITE,URINE NEG (NEG); TRANSITIONAL EPI CELLS, URINE <1 /hpf; URINE COLOR LIGHT-YELLOW (YELLW/STRAW); URINE LEUKOCYTE ESTERASE NEG (NEG)
--- NOTE | 2017-08-27 14:05 | PD ---
HPI Chief Complaint: Altered Mental Status Time Seen by Provider: 13:27 Travel History International Travel<30 days: No Contact w/Intl Traveler<30days: No Traveled to known affect area: No History of Present Illness HPI 86-year-old female complains of weakness. She arrives from [facility]. The daughter visited today and reports the patient was unable to stand upright or sit upright due to weakness. Evidently she was more confused than normal. A recent fall is reported. Unknown history of head trauma. The patient denies pain of any type, shortness of breath, fever, nausea and vomiting. She does report generalized weakness. The daughter notes they have recently changed medications from Xanax to Klonopin. PFSH Past Medical History Hx Anticoagulant Therapy: Yes Arthritis: Yes Asthma: No Autoimmune Disease: No Blood Disorders: No Anxiety: Yes Depression: Yes Heart Rhythm Problems: No Cancer: No Cardiac Catheterization: No Cardiovascular Problems: Yes High Cholesterol: No Chemotherapy: No Chest Pain: Yes Congestive Heart Failure: No COPD: No Cerebrovascular Accident: No Diabetes: No Diminished Hearing: No Endocrine: No Gastrointestinal Disorders: Yes (GERD) GERD: No Glaucoma: No Genitourinary: Yes ("medtronic bladder stimulator") Headaches: No Hepatitis: No Hiatal Hernia: No Hypertension: Yes Implanted Vascular Access Dvce: Yes Musculoskeletal: Yes (R rotator cuff repair) Neurologic: No Psychiatric: Yes (BIPOLAR) Reproductive: No Respiratory: No Immunizations Current: Yes Myocardial Infarction: No Radiation Therapy: No Seizures: No Sickle Cell Disease: No Sleep Apnea: No Ulcer: No ?: Not Menopausal: Yes Past Surgical History Abdominal Surgery: No AICD: No Arteriovenous Shunt: No Body Medical Devices: HX OF METAL IMPLANT TO SPINE, bladder stimulator Cardiac Surgery: No Coronary Artery Bypass Graft: No Ear Surgery: No Endocrine Surgery: No Eye Surgery: No Genitourinary Surgery: No Gynecologic Surgery: No Hysterectomy: No Insulin Pump: No Joint Replacement: No Neurologic Surgery: No Oral Surgery: No Pacemaker: No Thoracic Surgery: No Other Surgery: Yes (R rotator cuff repair) Social History Alcohol Use: Yes (wine daily) Tobacco Use: No Substance Use: No Allergies-Medications (Allergen,Severity, Reaction): Coded Allergies: codeine (Unverified Allergy, Severe, UNKNOWN, 02/27/17) Reported Meds & Prescriptions Reported Meds & Active Scripts Active Xanax (Alprazolam) 2 Mg Tab 2 Mg PO HS PRN Reported Vitamin D3 (Cholecalciferol (Vitamin D3)) 5,000 Unit Tab.rapdis 5,000 Units PO DAILY Metoprolol Succinate ER 24 HR (Metoprolol Succinate) 50 Mg Tab 50 Mg PO DAILY Zinc (Zinc Gluconate) 50 Mg Tab 50 Mg PO WEEKLY Cranberry Fruit (Cranberry (Vaccinium Macrocarpon)) 405 Mg Cap 3 Cap PO BID Magnesium (Magnesium Oxide) 400 Mg Tablet 400 Mg PO DAILY Fiber (Calcium Polycarbophil) 625 Mg Tab 1,250 Mg PO DAILY Calcium (Calcium Carbonate) 600 Mg Calcium (1500 Mg) Tab 600 Mg PO DAILY Ocuvite Adult 50+ (Multiple Vitamins W/ Minerals) 1 Cap 1 Cap PO DAILY [Rhodiola rosea] 500 Mg PO DAILY Pomegranate (Pomegranate Fruit Extract) 250 Mg Capsule 500 Mg PO DAILY Tolterodine ER (Tolterodine Tartrate) 4 Mg Cap 4 Mg PO DAILY Buspirone (Buspirone HCl) 7.5 Mg Tab 7.5 Mg PO BID Aspirin 81 Mg Chew 81 Mg CHEW SUN, WED, SUN Stool Softener (Docusate Sodium) 100 Mg Cap 100 Mg PO DAILY Zocor (Simvastatin) 20 Mg Tab 20 Mg PO HS Effexor (Venlafaxine HCl) 75 Mg Tab 75 Mg PO Q12H Melatonin 5 Mg Tab 3 Mg PO HS Hydrochlorothiazide 12.5 Mg Tab 12.5 Mg PO DAILY Review of Systems Except as stated in HPI: all other systems reviewed are Neg General / Constitutional: No: Fever Physical Exam Narrative GENERAL: 86 yo F, WNWD, pleasant, somewhat sleepy Vital Signs Date Time Temp Pulse Resp B/P (MAP) Pulse Ox O2 Delivery O2 Flow Rate FiO2 08/27/17 13:18 97.4 82 17 184/83 (116) 99 Room Air SKIN: Warm and dry. HEAD: Atraumatic. Normocephalic. EYES: Pupils equal and round. No scleral icterus. No injection or drainage. ENT: No nasal bleeding or discharge. Mucous membranes pink and moist. Xerostomia present. NECK: Trachea midline. No JVD. CARDIOVASCULAR: Regular rate and rhythm. RESPIRATORY: No accessory muscle use. Clear to auscultation. Breath sounds equal bilaterally. GASTROINTESTINAL: Abdomen soft, non-tender, nondistended. Hepatic and splenic margins not palpable. MUSCULOSKELETAL: Extremities without clubbing, cyanosis, or edema. No obvious deformities. NEUROLOGICAL: Patient is able to speak sentences. No focal cranial nerve deficit. Patient moves all extremities normally. PSYCHIATRIC: Appropriate mood and affect; insight and judgment normal. Data Data Last Documented VS Vital Signs Date Time Temp Pulse Resp B/P (MAP) Pulse Ox O2 Delivery O2 Flow Rate FiO2 08/27/17:18 97.4 82 17 184/83 (116) 99 Room Air Orders Orders Electrocardiogram (08/27/17 13:27) Complete Blood Count With Diff (08/27/17 13:27) Comprehensive Metabolic Panel (08/27/17 13:27) Creatine Kinase (Cpk) (08/27/17 13:27) Prothrombin Time / Inr (Pt) (08/27/17:) Act Partial Throm Time (Ptt) (08/27/17 13:) Troponin I (08/27/17 13:) Thyroid Stimulating Hormone (08/27/17 13:27) Urinalysis - C+S If Indicated (08/27/17 13:27) Chest, Single Ap (08/27/17 13:27) Ct Brain W/O Iv Contrast(Rout) (08/27/17 13:27) Blood Glucose (08/27/17 13:27) Ecg Monitoring (08/27/17:27) Iv Access Insert/Monitor (08/27/17 13:27) Oximetry (08/27/17 13:27) Sodium Chloride 0.9% Flush (Ns Flush) (08/27/17 13:30) Drug Screen, Random Urine (08/27/17 13:27) Alcohol (Ethanol) (08/27/17 13:27) Cath For Specimen (08/27/17 13:27) Ed Discharge Order (08/27/17 15:07) Labs Laboratory Tests Test 08/27/17 13:33 08/27/17 13:40 White Blood Count 9.7 TH/MM3 Red Blood Count 3.78 MIL/MM3 Hemoglobin 12.7 GM/DL Hematocrit 36.2 % Mean Corpuscular Volume 95.7 FL Mean Corpuscular Hemoglobin 33.7 PG Mean Corpuscular Hemoglobin Concent 35.2 % Red Cell Distribution Width 12.9 % Platelet Count 309 TH/MM3 Mean Platelet Volume 8.1 FL Neutrophils (%) (Auto) 83.1 % Lymphocytes (%) (Auto) 9.3 % Monocytes (%) (Auto) 6.9 % Eosinophils (%) (Auto) 0.2 % Basophils (%) (Auto) 0.5 % Neutrophils # (Auto) 8.1 TH/MM3 Lymphocytes # (Auto) 0.9 TH/MM3 Monocytes # (Auto) 0.7 TH/MM3 Eosinophils # (Auto) 0.0 TH/MM3 Basophils # (Auto) 0.0 TH/MM3 CBC Comment DIFF FINAL Differential Comment Prothrombin Time 10.0 SEC Prothromb Time International Ratio 1.0 RATIO Activated Partial Thromboplast Time 22.6 SEC Blood Urea Nitrogen 14 MG/DL Creatinine 1.23 MG/DL Random Glucose 111 MG/DL Total Protein 7.5 GM/DL Albumin 4.0 GM/DL Calcium Level 9.0 MG/DL Alkaline Phosphatase 95 U/L Aspartate Amino Transf (AST/SGOT) 21 U/L Alanine Aminotransferase (ALT/SGPT) 14 U/L Total Bilirubin 1.7 MG/DL Sodium Level 131 MEQ/L Potassium Level 3.8 MEQ/L Chloride Level 92 MEQ/L Carbon Dioxide Level 27.8 MEQ/L Anion Gap 11 MEQ/L Estimat Glomerular Filtration Rate 41 ML/MIN Total Creatine Kinase 54 U/L Troponin I LESS THAN 0.02 NG/ML Thyroid Stimulating Hormone 3rd Gen 0.439 uIU/ML Ethyl Alcohol Level LESS THAN 3 MG/DL Urine Color LIGHT-YELLOW Urine Turbidity CLEAR Urine pH 7.0 Urine Specific [place] 1.013 Urine Protein NEG mg/dL Urine Glucose (UA) NEG mg/dL Urine Ketones NEG mg/dL Urine Occult Blood NEG Urine Nitrite NEG Urine Bilirubin NEG Urine Urobilinogen LESS THAN 2.0 MG/DL Urine Leukocyte Esterase NEG Urine RBC LESS THAN 1 /hpf Urine WBC 2 /hpf Urine Transitional Epithelial Cells <1 /hpf Urine Hyaline Casts 3 /lpf Microscopic Urinalysis Comment CATH-CULT NOT IND Urine Opiates Screen NEG Urine Barbiturates Screen NEG Urine Amphetamines Screen NEG Urine Benzodiazepines Screen NEG Urine Cocaine Screen NEG Urine Cannabinoids Screen NEG MDM Medical Decision Making Medical Screen Exam Complete: Yes Emergency Medical Condition: Yes Medical Record Reviewed: Yes Differential Diagnosis UTI, anemia, electrolyte imbalance, polypharmacy Narrative Course CBC & BMP Diagram 08/27/17 13:33 Total Protein 7.5, Albumin 4.0, Calcium Level 9.0, Alkaline Phosphatase 95, Aspartate Amino Transf (AST/SGOT) 21, Alanine Aminotransferase (ALT/SGPT) 14, Total Bilirubin 1.7 H Tn < 0.02 INR 1.0 TSH 0.439 UTox lee-negative EtOH < 3 UA: no UTI Last Impressions Chest X-Ray 08/27/17 1327 Signed Impressions: Service Date/Time: Sunday, August 27, 2017 13:56 - CONCLUSION: Stable appearance with no acute cardiopulmonary disease. Young Mcmanus MD CT head: no ICH, possible sinusitis Consideration given to effects of benzodiazepine medications. Case discussed with the daughter by phone 3:30 PM who is agreeable with the assessment and plan. Element of sinusitis is considered as well. Scripts as below. Diagnosis Primary Impression: Weakness Additional Impressions: Polypharmacy Benzodiazepine causing adverse effect in therapeutic use Qualified Codes: T42.4X5A - Adverse effect of benzodiazepines, initial encounter Sinusitis Qualified Codes: J01.00 - Acute maxillary sinusitis, unspecified Referrals: Primary Care Physician call for appointment Med/Other Pt SpecificInfo: Prescription(s) given, No Change to Meds Disposition: 01 DISCHARGE HOME Condition: Stable Jaret Capps MD Aug 27, 2017 14:05
[2017-08-27 14:13] LABS: ALT (GPT) 14 U/L (10-53); AST (GOT) 21 U/L (15-37); BICARBONATE 27.8 MEQ/L (21.0-32.0); BLOOD UREA NITROGEN 14 MG/DL (7-18); CHLORIDE 92 MEQ/L (98-107); CREATININE 1.23 MG/DL (0.50-1.00); GLOMERULAR FILTRATION RATE 41 ML/MIN (>89); GLUCOSE,RANDOM 111 MG/DL (74-106); SODIUM (NA) 131 MEQ/L (136-145)
--- NOTE | 2017-08-27 14:17 | RADRPT ---
EXAM DATE/TIME: 08/27/2017 13:56 [facility] COMPARISON: CHEST SINGLE AP, February 27, 2017, 15:21. INDICATIONS : Coughing, short of breath MEDICAL HISTORY : AMS SURGICAL HISTORY : None. ENCOUNTER: Initial ACUITY: 1 day PAIN SCORE: 0/10 LOCATION: Bilateral FINDINGS: A single view of the chest demonstrates the lungs to be symmetrically aerated without evidence of mas s, infiltrate or effusion. The cardiomediastinal contours are unremarkable. Osseous structures are intact. There is stable elevation of the right hemidiaphragm. Atherosclerotic calcifications are agai n noted in the aorta. A retrocardiac hiatal hernia is again partially visualized. CONCLUSION: Stable appearance with no acute cardiopulmonary disease. Young Mcmanus MD on August 27, 2017 at 14:15 Board Certified Radiologist. This report was verified electronically.
[2017-08-27 14:23] LABS: ALKALINE PHOSPHATASE 95 U/L (45-117); TOTAL BILIRUBIN ADULT 1.7 MG/DL (0.2-1.0); TOTAL PROTEIN 7.5 GM/DL (6.4-8.2); TROPONIN I LESS THAN 0.02 NG/ML (0.02-0.05)
--- NOTE | 2017-08-27 15:01 | RADRPT ---
EXAM DATE/TIME: 08/27/2017 14:43 [facility] COMPARISON: CT BRAIN W/O CONTRAST, July 17, 2017, 22:38. INDICATIONS : Increase confusion, history of recent fall RADIATION DOSE: 56.35 CTDIvol (mGy) MEDICAL HISTORY : Hypertension. Cardiovascular disease Diabetes,pulmonary hypertension SURGICAL HISTORY : Orthopedic ENCOUNTER: Initial ACUITY: 1 day PAIN SCALE: 0/10 LOCATION: cranial TECHNIQUE: Multiple contiguous axial images were obtained of the head. Using automated exposure control and adj ustment of the mA and/or kV according to patient size, radiation dose was kept as low as reasonably a chievable to obtain optimal diagnostic quality images. DICOM format image data is available electro nically for review and comparison. FINDINGS: CEREBRUM: The ventricles are normal for age with diffuse moderate atrophic change. Chronic small vessel ischemi c changes are again noted. No evidence of midline shift, mass lesion, hemorrhage or acute infarction. No extra-axial fluid collections are seen. POSTERIOR FOSSA: The cerebellum and brainstem are intact. The 4th ventricle is midline. The cerebellopontine angle i s unremarkable. EXTRACRANIAL: The visualized portion of the orbits is intact. There are small air-fluid levels noted in both maxill jose daniel sinuses. SKULL: The calvaria is intact. No evidence of skull fracture. CONCLUSION: 1. Atrophy and chronic small vessel ischemic change again noted. 2. No acute hemorrhage or mass effect. 3. Small air-fluid levels in both maxillary sinuses which could indicate acute sinusitis. Young Mcmanus MD on August 27, 2017 at 14:58 Board Certified Radiologist. This report was verified electronically.
[2017-08-27] MEDS ORDERED: [UNRECOGNIZED DRUG - CODE] PO (15:11)
[2017-08-27] MEDS ORDERED: METO1TAB9 PO (15:11)
[2017-08-27 16:04] VITALS: BP 199/87; PULSE 91; RESP 16; O2SAT 97
--- NOTE | 2017-08-27 20:41 | EKG ---
Date Performed: 08/27/2017 Time Performed: 14:38:00 PTAGE: 86 years EKG: Sinus rhythm BASELINE ELECTRICAL ARTEFACT PROLONGED QT INTERVAL ABNORMAL ECG PREVIOUS TRACING : 08/27/2017 13.50 No significant change from previous tracing noted. DOCTOR: Reza Kelly Interpretating Date/Time 08/27/2017 20:40:30
--- NOTE | 2017-08-27 20:45 | EKG ---
Date Performed: 08/27/2017 Time Performed: 13:50:01 PTAGE: 86 years EKG: Sinus rhythm ELECTRICAL BASELINE ARTEFACT POSSIBLE LEFT ATRIAL ENLARGEMENT PROLONGED QT INTERVAL ABNORMAL ECG PREVIOUS TRACING : 02/27/2017 23.54 Compared to previous tracing, electrical baseline artefact is now present. DOCTOR: Reza Kelly Interpretating Date/Time 08/27/2017 20:43:37
== END 2017-08-27 19:50 | disposition home or self-care (01) ==
LOC: NEPE 12:58 → NEDAMB 19:50
DX: R53.1 Weakness (principal); T42.4X5A Adverse effect of benzodiazepines, initial encounter; J01.00 Acute maxillary sinusitis, unspecified; R94.31 Abnormal electrocardiogram [ECG] [EKG]; F31.9 Bipolar disorder, unspecified; F41.9 Anxiety disorder, unspecified; I10 Essential (primary) hypertension; K21.9 Gastro-esophageal reflux disease without esophagitis; Z79.82 Long term (current) use of aspirin; Z79.899 Other long term (current) drug therapy
CPT/HCPCS: 70450; 71045; 80053; 80307; 81001; 82550; 84443; 84484; 85025; 85610; 85730; 93005

== ENCOUNTER 2017-10-10 17:55 | Observation (INO) | payer OTHER ==
[~2017-10-10] VITALS: Ht 160 cm; Wt 62.0 kg
[~2017-10-10 17:55] MED LIST changes: -ALOE25CA PO; -COQ-50CA2; -METO1TAB42 PO; +METO1TAB9 PO; -VALE500C2 PO; -VITA1000 PO; +[UNRECOGNIZED DRUG - CODE] PO
[2017-10-10 18:07] VITALS: BP 182/81; PULSE 78; RESP 16; TEMP 97.6; O2SAT 99
[2017-10-10] MEDS ORDERED: SODIUM CHLORIDE 0.9% FLUSH 10 ML FLUSH IVF PRN (18:30)
[2017-10-10 19:06] LABS: AUTOMATED NEUTROPHIL # 3.1 TH/MM3 (1.8-7.7); BASOPHIL % 0.5 % (0.0-2.0); EOSINOPHIL % 0.9 % (0.0-4.0); HEMATOCRIT 33.8 % (35.0-46.0); HEMOGLOBIN 11.7 GM/DL (11.6-15.3); LYMPH % 17.3 % (9.0-44.0); LYMPHOCYTE # 0.8 TH/MM3 (1.0-4.8); MEAN CELL VOLUME 96.8 FL (80.0-100.0); MEAN CORPUSCULAR HEMOGLOBIN 33.5 PG (27.0-34.0); MEAN CORPUSCULAR HGB CONC 34.6 % (32.0-36.0); MEAN PLATELET VOLUME 8.3 FL (7.0-11.0); MONO % 14.6 % (0.0-8.0); MONOCYTE # 0.7 TH/MM3 (0-0.9); NEUT % 66.7 % (16.0-70.0); PLATELET COUNT 203 TH/MM3 (150-450); RED BLOOD COUNT 3.49 MIL/MM3 (4.00-5.30); RED CELL DISTRIBUTION WIDTH 13.2 % (11.6-17.2); WHITE BLOOD COUNT 4.7 TH/MM3 (4.0-11.0)
[2017-10-10] MEDS ORDERED: TIZA4CAP3 PO (19:13)
[2017-10-10 19:20] LABS: ALBUMIN 3.3 GM/DL (3.4-5.0); AST (GOT) 16 U/L (15-37); BICARBONATE 24.1 MEQ/L (21.0-32.0); BLOOD UREA NITROGEN 12 MG/DL (7-18); CALCIUM 8.9 MG/DL (8.5-10.1); CHLORIDE 93 MEQ/L (98-107); CREATININE 0.93 MG/DL (0.50-1.00); GLOMERULAR FILTRATION RATE 57 ML/MIN (>89); GLUCOSE,RANDOM 109 MG/DL (74-106); MAGNESIUM 1.9 MG/DL (1.5-2.5); SODIUM (NA) 129 MEQ/L (136-145)
[2017-10-10 19:25] LABS: ALKALINE PHOSPHATASE 77 U/L (45-117); ALT (GPT) 18 U/L (10-53); TOTAL BILIRUBIN ADULT 0.4 MG/DL (0.2-1.0); TOTAL PROTEIN 6.7 GM/DL (6.4-8.2); TROPONIN I LESS THAN 0.02 NG/ML (0.02-0.05)
[2017-10-10 19:36] VITALS: BP 171/75; PULSE 60; RESP 16; O2SAT 98
--- NOTE | 2017-10-10 19:36 | RADRPT ---
EXAM DATE: 10/10/2017 7:30 PM EDT AGE/SEX: 86 years / Female INDICATIONS: Syncope. CLINICAL DATA: This is the patient's initial encounter. Patient reports that signs and symptoms have been present for 1 day and indicates a pain score of Nonresponsive. MEDICAL/SURGICAL HISTORY: Non-responsive. Non-responsive. COMPARISON: Chest x-ray 08/27/2017. FINDINGS: A single AP view of the chest demonstrates the lungs to be symmetrically aerated without evidence of mass, infiltrate or effusion. The cardiomediastinal contours are unremarkable. Hiatal hernia. [place] structures are intact. CONCLUSION: Hiatal hernia. Clear lungs. Electronically signed by: Duke Oliveira MD 10/10/2017 7:35 PM EDT
--- NOTE | 2017-10-10 20:11 | RADRPT ---
EXAM DATE: 10/10/2017 8:01 PM EDT AGE/SEX: 86 years / Female INDICATIONS: Weakness, dizziness, and nausea. CLINICAL DATA: This is the patient's initial encounter. Patient reports that signs and symptoms have been present for 1 day and indicates a pain score of 4/10. MEDICAL/SURGICAL HISTORY: Hypertension. None. RADIATION DOSE: 35.03 CTDI (mGy) COMPARISON: CT brain 08/27/2017. TECHNIQUE: CT of the head without contrast. Using automated exposure control and adjustment of the mA and/or kV according to patient size, radiation dose was kept as low as reasonably achievable to ob tain optimal diagnostic quality images. FINDINGS: Cerebrum: Atrophy. Periventricular low attenuation change involving both cerebral hemispheres. The v entricles are normal for age. No evidence of midline shift, mass lesion, hemorrhage or acute infarct ion. No extraaxial fluid collections are seen. Posterior Fossa: The cerebellum and brainstem are intact. The 4th ventricle is midline. The cerebe llopontine angle is unremarkable. Extracranial: The visualized portion of the orbits is intact. An air-fluid level is partially seen i nvolving the right maxillary sinus. This is unchanged. Skull: The calvaria is intact. No evidence of skull fracture. CONCLUSION: 1. No acute intracranial abnormality. 2. Atrophy and chronic small vessel ischemic change. 3. Acute right maxillary sinusitis. Electronically signed by: Duke Oliveira MD 10/10/2017 8:10 PM EDT
--- NOTE | 2017-10-10 20:23 | PD ---
HPI Chief Complaint: General Weakness Time Seen by Provider: 19:13 Travel History International Travel<30 days: No Contact w/Intl Traveler<30days: No Traveled to known affect area: No History of Present Illness HPI 86-year-old female presents to the emergency department by EMS transport from her assisted living facility [facility] after she collapsed on her bed just prior to arrival to the emergency department. Patient states she has been in her normal state of health and today just before she collapsed onto her bed she felt as if she was going to collapse onto her bed. Patient denies any dizziness or preceding headache altered mental status unilateral numbness tingling or weakness denies any chest pain or palpitations or sweats or shortness of breath prior to the incident. Patient states she does not know if she had brief loss of consciousness. There was no incontinence. Patient denies prior history of collapsing or seizure. Patient does not know if she has had a previous TIA or stroke. Patient denies any new upper extremity lower extremity numbness tingling or weakness. Patient does not recall having any recent fever. Patient is currently not on any blood thinners and denies taking any recent antibiotic. Patient's had no nausea vomiting or diarrhea. Patient denies abdominal pain. Patient denies dysuria frequency urgency or flank pain. Patient states that the maintenance people had open the door for the paramedics. Patient was able to reach the call de paz for her facility. Unable to identify exacerbating or alleviating factors. PFSH Past Medical History Narrative Medical Arthritis dyslipidemia hypertension chest pain GERD anxiety depression bladder stimulator rotator cuff repair occasional alcohol use Hx Anticoagulant Therapy: Yes Arthritis: Yes Asthma: No Autoimmune Disease: No Blood Disorders: No Anxiety: Yes Depression: Yes Heart Rhythm Problems: No Cancer: No Cardiac Catheterization: No Cardiovascular Problems: Yes High Cholesterol: Yes Chemotherapy: No Chest Pain: Yes Congestive Heart Failure: No COPD: No Cerebrovascular Accident: No Diabetes: No Diminished Hearing: No Endocrine: No Gastrointestinal Disorders: Yes (GERD) GERD: Yes Glaucoma: No Genitourinary: Yes ("medtronic bladder stimulator") Headaches: No Hepatitis: No Hiatal Hernia: No Hypertension: Yes Implanted Vascular Access Dvce: Yes Musculoskeletal: Yes (R rotator cuff repair) Neurologic: No Psychiatric: Yes (BIPOLAR) Reproductive: No Respiratory: No Immunizations Current: Yes Myocardial Infarction: No Radiation Therapy: No Seizures: No Sickle Cell Disease: No Sleep Apnea: No Ulcer: No Menopausal: Yes Past Surgical History Abdominal Surgery: No AICD: No Arteriovenous Shunt: No Body Medical Devices: HX OF METAL IMPLANT TO SPINE, bladder stimulator Cardiac Surgery: No Coronary Artery Bypass Graft: No Ear Surgery: No Endocrine Surgery: No Eye Surgery: No Genitourinary Surgery: No Gynecologic Surgery: No Hysterectomy: No Insulin Pump: No Joint Replacement: No Neurologic Surgery: No Oral Surgery: No Pacemaker: No Thoracic Surgery: No Other Surgery: Yes (R rotator cuff repair) Social History Alcohol Use: Yes Tobacco Use: No Substance Use: No Allergies-Medications (Allergen,Severity, Reaction): Coded Allergies: codeine (Unverified Allergy, Severe, UNKNOWN, 02/27/17) Reported Meds & Prescriptions Reported Meds & Active Scripts Active Reported Tizanidine (Tizanidine HCl) 4 Mg Cap 4 Mg PO TID Vitamin D3 (Cholecalciferol (Vitamin D3)) 5,000 Unit Tab.rapdis 5,000 Units PO DAILY Cranberry Fruit (Cranberry (Vaccinium Macrocarpon)) 405 Mg Cap 3 Cap PO BID Magnesium (Magnesium Oxide) 400 Mg Tablet 400 Mg PO DAILY Fiber (Calcium Polycarbophil) 625 Mg Tab 1,250 Mg PO DAILY Calcium (Calcium Carbonate) 600 Mg Calcium (1500 Mg) Tab 600 Mg PO DAILY Ocuvite Adult 50+ (Multiple Vitamins W/ Minerals) 1 Cap 1 Cap PO DAILY Tolterodine ER (Tolterodine Tartrate) 4 Mg Cap 4 Mg PO DAILY Buspirone (Buspirone HCl) 7.5 Mg Tab 7.5 Mg PO BID Aspirin 81 Mg Chew 81 Mg CHEW SUN, SUN, SUN Stool Softener (Docusate Sodium) 100 Mg Cap 100 Mg PO DAILY Zocor (Simvastatin) 20 Mg Tab 20 Mg PO HS Effexor (Venlafaxine HCl) 75 Mg Tab 75 Mg PO Q12H Melatonin 5 Mg Tab 3 Mg PO HS Hydrochlorothiazide 12.5 Mg Tab 12.5 Mg PO DAILY Review of Systems Except as stated in HPI: all other systems reviewed are Neg General / Constitutional: No: Fever, Chills Eyes: No: Visual changes HENT: No: Headaches, Vertigo, Lightheadedness Cardiovascular: Positive: Syncope, No: Chest Pain or Discomfort, Diaphoresis Respiratory: No: Cough, Shortness of Breath Gastrointestinal: No: Nausea, Vomiting, Diarrhea, Abdominal Pain Genitourinary: No: Dysuria, Flank Pain Musculoskeletal: Positive: Pain (chronic back spasms), No: Myalgias, Arthralgias Skin: No Rash Neurologic: Positive: Weakness, Syncope, No: Dizziness, Focal Abnormalities, Coordination Problem Psychiatric: No: Anxiety Endocrine: No: Heat Intolerance, Cold Intolerance Hematologic/Lymphatic: No: Easy Bruising Physical Exam Narrative GENERAL: Well-developed elderly female appears slightly lethargic however GCS is 15 SKIN: Warm and dry. HEAD: Atraumatic. Normocephalic. EYES: Pupils equal and round. No scleral icterus. No injection or drainage. ENT: No nasal bleeding or discharge. Mucous membranes pink and moist. NECK: Trachea midline. No JVD. CARDIOVASCULAR: Regular rate and rhythm. RESPIRATORY: No accessory muscle use. Clear to auscultation. Breath sounds equal bilaterally. GASTROINTESTINAL: Abdomen soft, non-tender, nondistended. Hepatic and splenic margins not palpable. MUSCULOSKELETAL: Extremities without clubbing, cyanosis, or edema. No obvious deformities. NEUROLOGICAL: Awake and alert. No obvious cranial nerve deficits. Motor grossly within normal limits. Five out of 5 muscle strength in the arms and legs. Normal speech. PSYCHIATRIC: Appropriate mood and affect; insight and judgment normal. Data Data Last Documented VS Vital Signs Date Time Temp Pulse Resp B/P (MAP) Pulse Ox O2 Delivery O2 Flow Rate FiO2 10/10/17 21:58 74 16 172/74 (106) 98 Room Air 10/10/17 18:07 97.6 Orders Orders Electrocardiogram (10/10/17 18:27) Complete Blood Count With Diff (10/10/17 18:27) Comprehensive Metabolic Panel (10/10/17 18:27) Magnesium (Mg) (10/10/17 18:27) Ckmb (Isoenzyme) Profile (10/10/17 18:27) Troponin I (10/10/17 18:27) Act Partial Throm Time (Ptt) (10/10/17 18:) Prothrombin Time / Inr (Pt) (10/10/17 18:27) Urinalysis - C+S If Indicated (10/10/17 18:27) Ecg Monitoring (10/10/17 18:27) Iv Access Insert/Monitor (10/10/17 18:27) Oximetry (10/10/17 18:27) Sodium Chloride 0.9% Flush (Ns Flush) (10/10/17 18:30) Ct Brain W/O Iv Contrast(Rout) (10/10/17 ) Thyroid Stimulating Hormone (10/10/17 19:14) Blood Glucose (10/10/17 19:14) Chest, Single Ap (10/10/17 ) Drug Screen, Random Urine (10/10/17 21:08) Alcohol (Ethanol) (10/10/17 18:48) Urine Culture (10/10/17 20:55) Ceftriaxone Inj (Rocephin Inj) (10/10/17 23:00) Labs Laboratory Tests Test 10/10/17 18:48 10/10/17 20:55 White Blood Count 4.7 TH/MM3 Red Blood Count 3.49 MIL/MM3 Hemoglobin 11.7 GM/DL Hematocrit 33.8 % Mean Corpuscular Volume 96.8 FL Mean Corpuscular Hemoglobin 33.5 PG Mean Corpuscular Hemoglobin Concent 34.6 % Red Cell Distribution Width 13.2 % Platelet Count 203 TH/MM3 Mean Platelet Volume 8.3 FL Neutrophils (%) (Auto) 66.7 % Lymphocytes (%) (Auto) 17.3 % Monocytes (%) (Auto) 14.6 % Eosinophils (%) (Auto) 0.9 % Basophils (%) (Auto) 0.5 % Neutrophils # (Auto) 3.1 TH/MM3 Lymphocytes # (Auto) 0.8 TH/MM3 Monocytes # (Auto) 0.7 TH/MM3 Eosinophils # (Auto) 0.0 TH/MM3 Basophils # (Auto) 0.0 TH/MM3 CBC Comment DIFF FINAL Differential Comment Prothrombin Time 10.0 SEC Prothromb Time International Ratio 1.0 RATIO Activated Partial Thromboplast Time 23.4 SEC Blood Urea Nitrogen 12 MG/DL Creatinine 0.93 MG/DL Random Glucose 109 MG/DL Total Protein 6.7 GM/DL Albumin 3.3 GM/DL Calcium Level 8.9 MG/DL Magnesium Level 1.9 MG/DL Alkaline Phosphatase 77 U/L Aspartate Amino Transf (AST/SGOT) 16 U/L Alanine Aminotransferase (ALT/SGPT) 18 U/L Total Bilirubin 0.4 MG/DL Sodium Level 129 MEQ/L Potassium Level 3.5 MEQ/L Chloride Level 93 MEQ/L Carbon Dioxide Level 24.1 MEQ/L Anion Gap 12 MEQ/L Estimat Glomerular Filtration Rate 57 ML/MIN Total Creatine Kinase 64 U/L Troponin I LESS THAN 0.02 NG/ML Thyroid Stimulating Hormone 3rd Gen 0.289 uIU/ML Ethyl Alcohol Level LESS THAN 3 MG/DL Urine Color YELLOW Urine Turbidity CLEAR Urine pH 6.5 Urine Specific [place] 1.012 Urine Protein NEG mg/dL Urine Glucose (UA) NEG mg/dL Urine Ketones NEG mg/dL Urine Occult Blood NEG Urine Nitrite NEG Urine Bilirubin NEG Urine Urobilinogen LESS THAN 2.0 MG/DL Urine Leukocyte Esterase LARGE Urine RBC 2 /hpf Urine WBC 41 /hpf Urine Squamous Epithelial Cells 1 /hpf Urine Transitional Epithelial Cells 1 /hpf Urine Amorphous Sediment RARE Urine Mucus FEW /lpf Microscopic Urinalysis Comment CULTURE INDICATED Urine Opiates Screen NEG Urine Barbiturates Screen NEG Urine Amphetamines Screen NEG Urine Benzodiazepines Screen NEG Urine Cocaine Screen NEG Urine Cannabinoids Screen POS MDM Medical Decision Making Medical Screen Exam Complete: Yes Emergency Medical Condition: Yes Medical Record Reviewed: Yes Interpretation(s) EKG normal sinus rhythm rate [address] elevation artifact present due to implanted bladder stimulator --baseline artifact noted on prior EKG Last Impressions Head CT 10/10/17 0000 Signed Impressions: CONCLUSION: 1. No acute intracranial abnormality. 2. Atrophy and chronic small vessel ischemic change. 3. Acute right maxillary sinusitis. Chest X-Ray 10/10/17 0000 Signed Impressions: CONCLUSION: Hiatal hernia. Clear lungs. CBC & BMP Diagram 10/10/17 18:48 Total Protein 6.7, Albumin 3.3 L, Calcium Level 8.9, Magnesium Level 1.9, Alkaline Phosphatase 77, Aspartate Amino Transf (AST/SGOT) 16, Alanine Aminotransferase (ALT/SGPT) 18, Total Bilirubin 0.4 Vital Signs Date Time Temp Pulse Resp B/P (MAP) Pulse Ox O2 Delivery O2 Flow Rate FiO2 10/10/17 19:36 60 16 171/75 (107) 98 Room Air 10/10/17 18:07 97.6 78 16 182/81 (114) 99 Room Air trop I: less than 0.02, not elevated Urine drug screen positive for cannabinoids Serum alcohol less than 3, not elevated TSH decreased, 0.289 WBCs positive culture indicated Differential Diagnosis Near syncope, syncope, arrhythmia, seizure, TIA, polysubstance ingestion, accidental overdose, sepsis, UTI, ACS Narrative Course Patient placed on marketing communications assistant with continuous pulse oximetry IV access obtained specimens collected and sent for resulting CT brain noncontrast ordered TSH added CT brain noncontrast reveals no acute abnormality Alcohol and urine drug screen added daughter Merna reports mother drinks alcohol and took 3 zanaflex today/"this morning" and was "fine" at 2 PM; patient was tapered off of xanax for overuse -- patient denies any additional zanaflex dosing this afternoon UA pending; chemistries remarkable for mild hyponatremia 129 sodium Patient identified to have white blood cells on urinalysis culture indicated patient administered one-time dose of Rocephin 1 g IV piggyback Patient is able to sit up and eat a meal unwilling to stand due to complaint of feels as if she is too weak to stand trial attempted with nursing staff and tech staff at patient's side Physician Communication Physician Communication call placed to [facility] service Diagnosis Primary Impression: Generalized weakness Additional Impressions: Pyuria Hyponatremia Fe Barnett MD Oct 10, 2017 20:23
[2017-10-10 21:30] LABS: AMORPHOUS SEDIMENT, URINE RARE; BILIRUBIN, URINE NEG (NEG); BLOOD, URINE NEG (NEG); GLUCOSE,URINE NEG (NEG); KETONE, URINE NEG (NEG); MUCUS URINE FEW /lpf (OCC); NITRITE,URINE NEG (NEG); PH, URINE 6.5 (5.0-8.5); SQUAMOUS EPITHELIAL CELL URINE 1 /hpf (0-5); TRANSITIONAL EPI CELLS, URINE 1 /hpf; URINE COLOR YELLOW (YELLW/STRAW); URINE LEUKOCYTE ESTERASE LARGE (NEG)
[2017-10-10 21:58] VITALS: BP_SYST 172; BP_SYST 197; BP_DIAS 74; BP_DIAS 78; PULSE 74; RESP 16; O2SAT 98
[2017-10-10 22:18] VITALS: BP 193/92; PULSE 80; RESP 16; O2SAT 97
[2017-10-10] MEDS ORDERED: cefTRIAXone INJ 1,000 MG in SODIUM CHLORIDE 0.9% INJ 100 ML IV ONE (23:00)
[2017-10-10 23:42] VITALS: BP 143/64
[2017-10-11] VITALS (10 sets, daily range): BP systolic 131–193; BP diastolic 58–88; PULSE 67–97; RESP 15–18; TEMP 97.8–98.7; O2SAT 94–100
[2017-10-11] MEDS ORDERED: ACETAMINOPHEN 325 MG TAB PO PRN (00:30)
[2017-10-11] MEDS ORDERED: NALOXONE HCL 0.4 MG/ML AMP IV PUSH PRN (00:30)
[2017-10-11] MEDS ORDERED: LACTULOSE SYRUP 20 GM/30 ML CUP PO PRN (00:30)
[2017-10-11] MEDS ORDERED: MAGNESIUM HYDROXIDE SUSP 30 ML CUP PO PRN (00:30)
[2017-10-11] MEDS ORDERED: ONDANSETRON ODT 4 MG TAB PO PRN (00:30)
[2017-10-11] MEDS ORDERED: SENNOSIDES 8.6 MG TAB PO PRN (00:30)
[2017-10-11] MEDS ORDERED: SODIUM CHLORIDE 0.9% FLUSH 10 ML FLUSH IV FLUSH PRN (00:30)
[2017-10-11] MEDS ORDERED: BISACODYL 10 MG SUPP RECTAL PRN (00:30)
[2017-10-11] MEDS: HEPARIN SODIUM - SQ 10,000 UNITS/ML VIAL SQ SCH ×3 (00:54→23:12)
--- NOTE | 2017-10-11 03:28 | HHI.HP ---
[facility] Ad[facility] Diagnosis gebaralized weakness; pyuria/uti; hyponatremia; adverse med reaction Diagnoses: Travel History International Travel<30 Days: No Contact w/Intl Traveler <30 Da: No Traveled to Known Affected Are: No History of Present Illness 86-year-old female with a past medical history significant for pulmonary hypertension, chronic kidney disease, hypertension, bipolar disorder, CAD, hyperlipidemia, diabetes and anxiety presented to the emergency department for evaluation of a fall. The patient reports she collapsed onto her bed. She states she knew that she was going to fall prior to the event. She denies any loss of consciousness or head trauma. On arrival to the emergency department, the patient was found to be extremely drowsy. She reports that she took all 3 of her Zanaflex this morning at once prior to her fall. She states she did this because she was having severe muscle spasms in her back. She reports that she was mixed up about how to take the medication and did not intentionally overdose. The patient denies any chest pain or shortness of breath. No abdominal pain. No nausea/vomiting/diarrhea. No fevers/chills. No lateralizing signs/symptoms. No dizziness or lightheadedness prior to her fall. Review of Systems Except as stated in HPI: all other systems reviewed are Neg Past Family Social History Past Medical History (Obtained from medical records) pulmonary hypertension, chronic kidney disease, hypertension, bipolar disorder, CAD, hyperlipidemia, diabetes and anxiety Past Surgical History Rotator cuff repair Bladder stimulator Reported Medications Reported Meds & Active Scripts Active Reported Tizanidine (Tizanidine HCl) 4 Mg Cap 4 Mg PO TID Vitamin D3 (Cholecalciferol (Vitamin D3)) 5,000 Unit Tab.rapdis 5,000 Units PO DAILY Cranberry Fruit (Cranberry (Vaccinium Macrocarpon)) 405 Mg Cap 3 Cap PO BID Magnesium (Magnesium Oxide) 400 Mg Tablet 400 Mg PO DAILY Fiber (Calcium Polycarbophil) 625 Mg Tab 1,250 Mg PO DAILY Calcium (Calcium Carbonate) 600 Mg Calcium (1500 Mg) Tab 600 Mg PO DAILY Ocuvite Adult 50+ (Multiple Vitamins W/ Minerals) 1 Cap 1 Cap PO DAILY Tolterodine ER (Tolterodine Tartrate) 4 Mg Cap 4 Mg PO DAILY Buspirone (Buspirone HCl) 7.5 Mg Tab 7.5 Mg PO BID Aspirin 81 Mg Chew 81 Mg CHEW MON, WED, SUN Stool Softener (Docusate Sodium) 100 Mg Cap 100 Mg PO DAILY Zocor (Simvastatin) 20 Mg Tab 20 Mg PO HS Effexor (Venlafaxine HCl) 75 Mg Tab 75 Mg PO Q12H Melatonin 5 Mg Tab 3 Mg PO HS Hydrochlorothiazide 12.5 Mg Tab 12.5 Mg PO DAILY Allergies: Coded Allergies: codeine (Unverified Allergy, Severe, UNKNOWN, 02/27/17) Family History Patient does not remember family history Social History Patient denies any tobacco, alcohol or illicit drug use Physical Exam Vital Signs Vital Signs Date Time Temp Pulse Resp B/P (MAP) Pulse Ox O2 Delivery O2 Flow Rate FiO2 10/11/17 02:49 98.5 76 16 167/72 (103) 97 10/11/17 00:09 98.5 67 15 131/58 (82) 97 10/10/17 23:42 68 16 143/64 (90) 98 10/10/17 21:58 74 16 172/74 (106) 98 Room Air 10/10/17 19:36 60 16 171/75 (107) 98 Room Air 10/10/17 18:07 97.6 78 16 182/81 (114) 99 Room Air Physical Exam GENERAL: female lying in bed, sleeping SKIN: No rashes, ecchymoses or lesions. Cool and dry. HEAD: Atraumatic. Normocephalic. No temporal or scalp tenderness. EYES: Pupils equal round and reactive. Extraocular motions intact. No scleral icterus. No injection or drainage. ENT: Nose without bleeding, purulent drainage or septal hematoma. Throat without erythema, tonsillar hypertrophy or exudate. Uvula midline. Airway patent. NECK: Trachea midline. No JVD or lymphadenopathy. Supple, nontender, no meningeal signs. CARDIOVASCULAR: Regular rate and rhythm without murmurs, gallops, or rubs. RESPIRATORY: Clear to auscultation. Breath sounds equal bilaterally. No wheezes , rales, or rhonchi. GASTROINTESTINAL: Abdomen soft, non-tender, nondistended. No hepato-splenomegaly , or palpable masses. No guarding. MUSCULOSKELETAL: Extremities without clubbing, cyanosis, or edema. No joint tenderness, effusion, or edema noted. No calf tenderness. NEUROLOGICAL: Awake and alert. Cranial nerves II through XII intact. Motor and sensory grossly within normal limits. Normal speech. Laboratory Laboratory Tests Test 10/10/17 18:48 10/10/17 20:55 White Blood Count 4.7 Red Blood Count 3.49 Hemoglobin 11.7 Hematocrit 33.8 Mean Corpuscular Volume 96.8 Mean Corpuscular Hemoglobin 33.5 Mean Corpuscular Hemoglobin Concent 34.6 Red Cell Distribution Width 13.2 Platelet Count 203 Mean Platelet Volume 8.3 Neutrophils (%) (Auto) 66.7 Lymphocytes (%) (Auto) 17.3 Monocytes (%) (Auto) 14.6 Eosinophils (%) (Auto) 0.9 Basophils (%) (Auto) 0.5 Neutrophils # (Auto) 3.1 Lymphocytes # (Auto) 0.8 Monocytes # (Auto) 0.7 Eosinophils # (Auto) 0.0 Basophils # (Auto) 0.0 CBC Comment DIFF FINAL Differential Comment Prothrombin Time 10.0 Prothromb Time International Ratio 1.0 Activated Partial Thromboplast Time 23.4 Blood Urea Nitrogen 12 Creatinine 0.93 Random Glucose 109 Total Protein 6.7 Albumin 3.3 Calcium Level 8.9 Magnesium Level 1.9 Alkaline Phosphatase 77 Aspartate Amino Transf (AST/SGOT) 16 Alanine Aminotransferase (ALT/SGPT) 18 Total Bilirubin 0.4 Sodium Level 129 Potassium Level 3.5 Chloride Level 93 Carbon Dioxide Level 24.1 Anion Gap 12 Estimat Glomerular Filtration Rate 57 Total Creatine Kinase 64 Troponin I LESS THAN 0.02 Thyroid Stimulating Hormone 3rd Gen 0.289 Ethyl Alcohol Level LESS THAN 3 Urine Color YELLOW Urine Turbidity CLEAR Urine pH 6.5 Urine Specific [place] 1.012 Urine Protein NEG Urine Glucose (UA) NEG Urine Ketones NEG Urine Occult Blood NEG Urine Nitrite NEG Urine Bilirubin NEG Urine Urobilinogen LESS THAN 2.0 Urine Leukocyte Esterase LARGE Urine RBC 2 Urine WBC 41 Urine Squamous Epithelial Cells 1 Urine Transitional Epithelial Cells 1 Urine Amorphous Sediment RARE Urine Mucus FEW Microscopic Urinalysis Comment CULTURE INDICATED Urine Opiates Screen NEG Urine Barbiturates Screen NEG Urine Amphetamines Screen NEG Urine Benzodiazepines Screen NEG Urine Cocaine Screen NEG Urine Cannabinoids Screen POS Date/Time Source Procedure Growth Status 10/10/17 20:55 Urine Random Urine Urine Culture Pending Received Result Diagram: 10/10/17184710/[id number]/171847 Caprini VTE Risk Assessment Caprini VTE Risk Assessment: Mod/High Risk (score >= 2) Caprini Risk Assessment Model Point Value = 1 Point Value = 2 Point Value = 3 Point Value = 5 Age 41-60 Minor surgery BMI > 25 kg/m2 Swollen legs Varicose veins or History of unexplained or recurrent spontaneous Oral contraceptives or hormone replacement Sepsis (< 1 month) Serious lung disease, including pneumonia (< 1 month) Abnormal pulmonary function Acute myocardial infarction Congestive heart failure (< 1 month) History of inflammatory bowel disease Medical patient at bed rest Age 61-74 Arthroscopic surgery Major open surgery (> 45 min) Laparoscopic surgery (> 45 min) Malignancy Confined to bed (> 72 hours) Immobilizing plaster cast Central venous access Age >= 75 History of VTE Family history of VTE Factor V Leiden Prothrombin [id number] Lupus anticoagulant Anticardiolipin antibodies Elevated serum homocysteine Heparin-induced thrombocytopenia Other congenital or acquired thrombophilia Stroke (< 1 month) Elective arthroplasty Hip, pelvis, or leg fracture Acute spinal cord injury (< 1 month) Prophylaxis Regimen Total Risk Factor Score Risk Level Prophylaxis Regimen 0-1 Low Early ambulation 2 Moderate Order ONE of the following: *Sequential Compression Device (SCD) *Heparin 5000 units SQ BID 3-4 Higher Order ONE of the following medications: *Heparin 5000 units SQ TID *Enoxaparin/Lovenox 40 mg SQ daily (WT < 150 kg, CrCl > 30 mL/min) *Enoxaparin/Lovenox 30 mg SQ daily (WT < 150 kg, CrCl > 10-29 mL/min) *Enoxaparin/Lovenox 30 mg SQ BID (WT < 150 kg, CrCl > 30 mL/min) AND/OR *Sequential Compression Device (SCD) 5 or more Highest Order ONE of the following medications: *Heparin 5000 units SQ TID (Preferred with Epidurals) *Enoxaparin/Lovenox 40 mg SQ daily (WT < 150 kg, CrCl > 30 mL/min) *Enoxaparin/Lovenox 30 mg SQ daily (WT < 150 kg, CrCl > 10-29 mL/min) *Enoxaparin/Lovenox 30 mg SQ BID (WT < 150 kg, CrCl > 30 mL/min) AND *Sequential Compression Device (SCD) Assessment and Plan Assessment and Plan Assessment/plan: 1. Fall Patient fell from standing onto her bed Denies any loss of consciousness No head trauma Head CT negative for acute process 2. Altered mental status/drug overdose Patient reports taking 3 Zanaflex this morning for back spasms Head CT as above Altered mental status secondary to drug overdose Drug overdose unintentional Monitor 3. Urinary tract infection UA consistent with urinary tract infection Urine culture pending Rocephin 4. Multiple medical comorbidities Continue home medications FEN Heart healthy diet Electrolytes: Monitor and replete as needed Heparin Kiersten Kang MD Oct 11, 2017 03:28
[2017-10-11] MEDS ORDERED: ALPRAZolam 0.25 MG TAB PO ONE (06:00)
[2017-10-11] MEDS: ASPIRIN 81 MG CHEW TAB CHEW SCH (08:25)
[2017-10-11] MEDS: DOCUSATE SODIUM 50 MG/SENNA 8.6 MG TAB PO SCH ×2 (08:26→21:16)
[2017-10-11] MEDS: SODIUM CHLORIDE 0.9% FLUSH 10 ML FLUSH IV FLUSH SCH ×2 (08:26→21:16)
[2017-10-11] MEDS: VENLAFAXINE HCL XR 75 MG CAP PO SCH (08:26)
[2017-10-11] MEDS: TOLTERODINE TARTRATE 4 MG CAP LA PO SCH (08:26)
[2017-10-11] MEDS ORDERED: HYDROCHLOROTHIAZIDE 12.5 MG CAP PO SCH (09:00)
[2017-10-11] MEDS ORDERED: SODIUM CHLOR 0.9% 1000 ML INJ 1,000 ML IV SCH (10:00)
[2017-10-11 10:33] LABS: BICARBONATE 26.9 MEQ/L (21.0-32.0); CREATININE 0.88 MG/DL (0.50-1.00)
[2017-10-11 13:30] LABS: OSMOLALITY,SERUM 280 MOSM/KG (275-295)
--- NOTE | 2017-10-11 13:36 | HHI.PR ---
Subjective Remarks Follow-up on patient status post fall after unintentionally overdosing on Zanaflex. Patient seen and examined. Patient states she was just recently started on Zanaflex and did not know that you could not take multiple pills at the same time. Patient also tested positive for cannabis and discussed cessation with patient. She is requesting to go home today. She denies any headache, dizziness, lightheadedness or vision changes. She denies any numbness , tingling or weakness. Denies any chest pain or shortness of breath. Denies any nausea, vomiting or abdominal pain. She reports good appetite. She does states that she has had some burning with urination. She denies any diarrhea or constipation. Objective Vitals Vital Signs Date Time Temp Pulse Resp B/P (MAP) Pulse Ox O2 Delivery O2 Flow Rate FiO2 10/11/17 08:19 98.4 81 16 193/76 (115) 100 10/11/17 02:49 98.5 76 16 167/72 (103) 97 10/11/17 00:09 98.5 67 15 131/58 (82) 97 10/10/17 23:42 68 16 143/64 (90) 98 10/10/17 21:58 74 16 172/74 (106) 98 Room Air 10/10/17 19:36 60 16 171/75 (107) 98 Room Air 10/10/17 18:07 97.6 78 16 182/81 (114) 99 Room Air Result Diagram: 10/10/17 1848 10/11/17 0935 Imaging Last Impressions Head CT 10/10/17 0000 Signed Impressions: CONCLUSION: 1. No acute intracranial abnormality. 2. Atrophy and chronic small vessel ischemic change. 3. Acute right maxillary sinusitis. Chest X-Ray 10/10/17 0000 Signed Impressions: CONCLUSION: Hiatal hernia. Clear lungs. Objective Remarks GENERAL: WDWN female, INAD. Awake and alert. Sitting up in bed eating breakfast. SKIN: No rashes, ecchymoses or lesions. Cool and dry. HEAD: Atraumatic. Normocephalic. No temporal or scalp tenderness. EYES: Pupils equal round and reactive. Extraocular motions intact. No scleral icterus. No injection or drainage. ENT: Nose without bleeding or purulent drainage. Airway patent. MMM. NECK: Trachea midline. CARDIOVASCULAR: Regular rate and rhythm without murmurs, gallops, or rubs. RESPIRATORY: Clear to auscultation. Breath sounds equal bilaterally. No wheezes , rales, or rhonchi. GASTROINTESTINAL: Abdomen soft, non-tender, nondistended. No hepato-splenomegaly , or palpable masses. No guarding. MUSCULOSKELETAL: Extremities without clubbing, cyanosis, or edema. No joint tenderness, effusion, or edema noted. No calf tenderness. NEUROLOGICAL: Awake and alert. Cranial nerves II through XII grossly intact. Motor and sensory grossly within normal limits. Normal speech. PSYCHIATRIC: Calm and cooperative with examination. Procedures None A/P Assessment and Plan 86-year-old female with a past medical history significant for pulmonary hypertension, chronic kidney disease, hypertension, bipolar disorder, CAD, hyperlipidemia and anxiety presented to the emergency department for evaluation of a fall after unintentionally overdosing on Zanaflex. Fall from standing position onto bed secondary to unintentionally overdosing on Zanaflex AMS secondary to drug overdose in combination with UTI No LOC or head trauma Head CT negative -Lengthy discussion with patient regarding how to properly take Zanaflex however recommended patient no longer take the medication at all. Additionally , patient tested positive for cannabis and recommended cessation. -PT eval/tx -ST for cognitive evaluation -fall precautions UTI UA suggestive of urinary tract infection -Continue on IV ceftriaxone -Follow-up on urine culture results Hyponatremia Na 129, improved to 134 -hold HCTZ -Continue to monitor sodium as indicated Hypertension, not well controlled -Begin Norvasc 5mg daily -Clonidine prn with parameters -continue to monitor BP and adjust treatment as indicated Cannabis use Urine tox screen + cannabis -Discussed importance of cessation with patient DVT prophylaxis -Heparin sq Vanessa Anderson Oct 11, 2017 13:36
[2017-10-11 13:39] LABS: TOTAL T3 74 NG/DL (60-181)
[2017-10-11] MEDS ORDERED: cloNIDine HCL 0.1 MG TAB PO PRN (13:45)
[2017-10-11] MEDS ORDERED: amLODIPine BESYLATE 5 MG TAB PO ONE (13:45)
--- NOTE | 2017-10-11 19:29 | EKG ---
Date Performed: 10/10/2017 Time Performed: 19:37:58 PTAGE: 86 years EKG: Normal Sinus Rythm Gross electric artifact Probably Normal ECG but precise intepretation is not possible with artifact. Since PREVIOUS TRACING , no significant serial change and artifact was previously noted, marguerite ng the possiblity that the electric artifact is tremor artifact. Clinical correlation is recommended . PREVIOUS TRACIN08/27/2017 14.38 DOCTOR: Kami Myrick Interpretating Date/Time 10/11/2017 19:28:10
[2017-10-11] MEDS ORDERED: PRAVASTATIN SOD 40 MG TAB PO SCH (21:00)
[2017-10-11] MEDS ORDERED: cefTRIAXone INJ 1,000 MG in SODIUM CHLORIDE 0.9% INJ 100 ML IV SCH (23:00)
[2017-10-12 03:50] VITALS: BP 182/64; PULSE 82; RESP 16; TEMP 97.7; O2SAT 96
[2017-10-12 07:30] VITALS: PULSE 63
[2017-10-12 07:36] VITALS: BP 207/80; PULSE 79; RESP 18; TEMP 97.5; O2SAT 95
[2017-10-12 07:37] LABS: BASOPHIL % 0.5 % (0.0-2.0); EOSINOPHIL % 0.8 % (0.0-4.0); HEMATOCRIT 38.3 % (35.0-46.0); HEMOGLOBIN 13.2 GM/DL (11.6-15.3); LYMPH % 14.3 % (9.0-44.0); LYMPHOCYTE # 0.8 TH/MM3 (1.0-4.8); MEAN CELL VOLUME 96.4 FL (80.0-100.0); MEAN CORPUSCULAR HEMOGLOBIN 33.1 PG (27.0-34.0); MEAN CORPUSCULAR HGB CONC 34.4 % (32.0-36.0); MEAN PLATELET VOLUME 9.4 FL (7.0-11.0); MONO % 9.4 % (0.0-8.0); MONOCYTE # 0.5 TH/MM3 (0-0.9); PLATELET COUNT 222 TH/MM3 (150-450); RED BLOOD COUNT 3.98 MIL/MM3 (4.00-5.30); RED CELL DISTRIBUTION WIDTH 13.4 % (11.6-17.2); WHITE BLOOD COUNT 5.3 TH/MM3 (4.0-11.0)
[2017-10-12 07:56] LABS: BICARBONATE 23.8 MEQ/L (21.0-32.0); CALCIUM 8.9 MG/DL (8.5-10.1); CREATININE 0.72 MG/DL (0.50-1.00)
[2017-10-12] MEDS ORDERED: POTASSIUM CHLORIDE 10 MEQ CONTROLLED RELEASE TAB PO ONE (08:45)
[2017-10-12] MEDS ORDERED: amLODIPine BESYLATE 5 MG TAB PO SCH (09:00)
[2017-10-12] MEDS: ASPIRIN 81 MG CHEW TAB CHEW SCH (09:55)
[2017-10-12] MEDS: DOCUSATE SODIUM 50 MG/SENNA 8.6 MG TAB PO SCH (09:55)
[2017-10-12] MEDS: VENLAFAXINE HCL XR 75 MG CAP PO SCH (09:56)
[2017-10-12] MEDS: SODIUM CHLORIDE 0.9% FLUSH 10 ML FLUSH IV FLUSH SCH (09:56)
[2017-10-12] MEDS ORDERED: SODIUM CHLORID 0.9% 500 ML INJ 500 ML IV ONE (10:00)
[2017-10-12 11:22] VITALS: BP_SYST 142; BP_SYST 149; BP_SYST 178; BP_DIAS 67; BP_DIAS 73; BP_DIAS 79; PULSE 88; RESP 18; TEMP 97.7; O2SAT 98
[2017-10-12] MEDS: HEPARIN SODIUM - SQ 10,000 UNITS/ML VIAL SQ SCH (12:42)
[2017-10-12] MEDS: TOLTERODINE TARTRATE 4 MG CAP LA PO SCH (12:42)
--- NOTE | 2017-10-12 13:32 | HHI.PR ---
Subjective Remarks Follow-up on patient status post fall after unintentionally overdosing on Zanaflex. Patient seen and examined. Patients blood pressure elevated this am 207/80. Given Clonidine 0.1mg at 745 and repeat systolic dropped to 109 with patient complaining of dizziness. Patient reports nausea. She denies any fever or chills. She denies any chest pain or dyspnea. She denies any abdominal pain. She reports hx of vertigo. Objective Vitals Vital Signs Date Time Temp Pulse Resp B/P (MAP) Pulse Ox O2 Delivery O2 Flow Rate FiO2 10/12/17 11:22 97.7 88 18 178/79 (112) 98 149/73 (98) 142/67 (92) 10/12/17 07:36 97.5 79 18 207/80 (122) 95 10/12/17 07:30 63 10/12/17 04:17 10/12/17 03:50 97.7 82 16 182/64 (103) 96 10/11/17 23:13 98.7 80 16 163/75 (104) 95 10/11/17 23:00 82 10/11/17 19:56 97 18 183/84 (117) 97 10/11/17 17:45 98.5 90 18 174/88 (116) 94 10/11/17 15:25 85 10/11/17 13:21 97.8 80 18 177/72 (107) 94 I/O 10/11/17 10/11/17 10/11/17 10/12/17 10/12/17 10/12/17 07:00 15:00 23:00 07:00 15:00 23:00 Intake Total 240 ml 740 ml Balance 240 ml 740 ml Intake Oral 240 ml 120 ml IV Total 620 ml # Voids 3 3 Result Diagram: 10/12/17 0610 10/12/17 0610 Imaging Last Impressions Head CT 10/10/17 0000 Signed Impressions: CONCLUSION: 1. No acute intracranial abnormality. 2. Atrophy and chronic small vessel ischemic change. 3. Acute right maxillary sinusitis. Chest X-Ray 10/10/17 0000 Signed Impressions: CONCLUSION: Hiatal hernia. Clear lungs. Objective Remarks GENERAL: WDWN female, INAD. Awake and alert. Sitting up in bed. SKIN: No rashes, ecchymoses or lesions. Cool and dry. HEAD: Atraumatic. Normocephalic. EYES: Pupils equal round and reactive. Extraocular motions intact. No scleral icterus. No injection or drainage. ENT: Nose without bleeding or purulent drainage. Airway patent. MMM. NECK: Trachea midline. CARDIOVASCULAR: Regular rate and rhythm without murmurs, gallops, or rubs. RESPIRATORY: Clear to auscultation. Breath sounds equal bilaterally. No wheezes , rales, or rhonchi. GASTROINTESTINAL: Abdomen soft, non-tender, nondistended. No guarding. MUSCULOSKELETAL: Extremities without clubbing, cyanosis, or edema. No calf tenderness. NEUROLOGICAL: Awake and alert. Cranial nerves II through XII grossly intact. Motor and sensory grossly within normal limits. No focal neurologic findings appreciated. Normal speech. PSYCHIATRIC: Calm and cooperative with examination. Procedures None A/P Assessment and Plan 86-year-old female with a past medical history significant for pulmonary hypertension, chronic kidney disease, hypertension, bipolar disorder, CAD, hyperlipidemia and anxiety presented to the emergency department for evaluation of a fall after unintentionally overdosing on Zanaflex. Fall from standing position onto bed secondary to unintentionally overdosing on Zanaflex AMS secondary to unintentional drug overdose No LOC or head trauma Head CT negative -Lengthy discussion with patient regarding how to properly take Zanaflex however recommended patient no longer take the medication at all. Additionally , patient tested positive for cannabis and recommended cessation. -PT eval recommending PT at rehab. Discussed with CM -patient resides in the independent section of [facility] which is actually in the process of sending of 45 day notice of infection to the patient. 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 -fall precautions Hypertension, now hypotensive, symptomatic -Obtain orthostatic BP measurements -Hold BP meds for now -Give IVF bolus -Continue fall precautions UTI UA suggestive of urinary tract infection -Urine culture with mixed gram-positive storm, likely contaminant -Discontinue IV ceftriaxone Hyponatremia, possible SIADH -Continue to hold HCTZ -Continue to monitor sodium as indicated Hypokalemia, mild -P.o. repletion ordered -Repeat BMP in am to monitor response Cannabis use Urine tox screen + cannabis -Discussed importance of cessation with patient DVT prophylaxis -Heparin sq Discharge Planning Not ready for discharge. Discharge pending clinical improvement and acceptance at SNF facility. Case management assisting with ongoing discharge planning. Vanessa Anderson Oct 12, 2017 13:32
[2017-10-12 15:52] VITALS: BP 148/62; PULSE 68; RESP 20; TEMP 98.2; O2SAT 96
[2017-10-12 16:15] VITALS: PULSE 84
--- NOTE | 2017-10-12 17:33 | HHI.DCPOC ---
Discharge Care Plan Diagnosis: (1) Fall in home (2) Encephalopathy acute (3) Drug overdose (4) Hypertension (5) Cannabis abuse (6) Generalized weakness (7) Hyponatremia (8) Orthostatic hypotension Goals to Promote Your Health * To prevent worsening of your condition and complications * To maintain your health at the optimal level Directions to Meet Your Goals Strongly advise you to stop using marijuana Take your medications as prescribed Follow your dietary instruction Follow activity as directed Keep your appointments as scheduled Take your immunizations and boosters as scheduled If your symptoms worsen call your PCP, if no PCP go to Urgent Care Center or Emergency Room Smoking is Dangerous to Your Health. Avoid second hand smoke Call the 24-hour hour crisis hotline for domestic abuse at Vanessa Anderson Oct 12, 2017 17:33
== END 2017-10-12 18:36 ==
LOC: NEPC 17:55 → NEDA 23:14 → NEPGCP 23:57
PROVIDERS: ADMIT Internal Medicine; ATTEND Internal Medicine
DX: R41.82 Altered mental status, unspecified (principal); T42.8X1A Poisoning by antiparkinsonism drugs and other central muscle-tone depressants, accidental (unintentional), initial encounter; N39.0 Urinary tract infection, site not specified; M62.830 Muscle spasm of back; R53.1 Weakness; I25.10 Atherosclerotic heart disease of native coronary artery without angina pectoris; I12.9 Hypertensive chronic kidney disease with stage 1 through stage 4 chronic kidney disease, or unspecified chronic kidney disease; E11.22 Type 2 diabetes mellitus with diabetic chronic kidney disease; N18.9 Chronic kidney disease, unspecified; I27.20 Pulmonary hypertension, unspecified; E78.5 Hyperlipidemia, unspecified; G93.40 Encephalopathy, unspecified; J01.00 Acute maxillary sinusitis, unspecified; I95.1 Orthostatic hypotension; E87.1 Hypo-osmolality and hyponatremia; E87.6 Hypokalemia; K44.9 Diaphragmatic hernia without obstruction or gangrene; K21.9 Gastro-esophageal reflux disease without esophagitis; F31.9 Bipolar disorder, unspecified; F41.9 Anxiety disorder, unspecified; F12.10 Cannabis abuse, uncomplicated; M19.90 Unspecified osteoarthritis, unspecified site; Z79.899 Other long term (current) drug therapy; Z79.82 Long term (current) use of aspirin
CPT/HCPCS: 70450; 71045; 80048; 80053; 80307; 81001; 82550; 83735; 83930; 84439; 84443; 84480; 84484; 85025; 85610; 85730; 87086; 93005; 96125; 96361; 96365; 96372; 96376; 97162; 97530; 99285; G0378; G8987; G8988; J0696; J1644; J7030; J7040